=== PATIENT | male | born 1950 | race Caucasian/White ===

== ENCOUNTER 2017-05-13 09:03 | Emergency (ER) | payer MEDICARE, OTHER, SELFPAY ==
[2017-05-13 09:03] VITALS: BP 148/103; PULSE 64; RESP 19; TEMP 36.4; O2SAT 97; BMI 32.2
--- NOTE | 2017-05-13 09:19 | CT_ITS ---
STUDY: CTA OF THE BRAIN REASON FOR EXAM: Male, 67 years old. RT EAR TINNITUS, NAUSEA, PT C/O DIZZINESS WHEN HE WOKE UP THIS AM AROUND 0600. WENT BACK TO BED WOKE UP AT 0800 STILL DIZZY AND NAUSEATED. 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 Data acquisition was obtained from the skull base through the vertex following intravenous administration of ml of . MIP images were reconstructed from the axial data set. Post-processing of the angiographic images was performed, with multiplanar reformation and 3D reconstruction. Individualized dose optimization techniques were used for this CT. COMPARISON: None. FINDINGS: Normal bilateral petrous carotid arteries. Normal right cavernous carotid artery with a normal supraclinoid bifurcation. Normal left cavernous carotid artery with a normal supraclinoid bifurcation. Normal right A1 segments of the anterior cerebral artery. Normal left A1 segments of the anterior cerebral artery. Normal intact anterior communicating artery (ACOM). Normal bilateral A2 segments of the anterior cerebral arteries. Normal right M1 and M2 segments of the middle cerebral arteries, with a normal M1 bifurcation. Normal left M1 and M2 segments of the middle cerebral arteries, with a normal M1 bifurcation. There is non-visualization of the right posterior communicating artery (PCOM). There is non-visualization of the left posterior communicating artery (PCOM). Normal bilateral vertebral arteries. Normal basilar artery with a normal basilar bifurcation. The visualized bilateral superior cerebellar (SCA) arteries are normal. Normal bilateral P1, P2 and visualized P3 segments of the posterior cerebral arteries. There is no demonstrated aneurysm of the [place]. There is no demonstrated abnormality of the visualized brain. IMPRESSION: Normal [place] without a demonstrated aneurysm or hemodynamically significant stenosis. Electronically Signed: Mellissa Burt MD at 11:01 EDT Tel , Service support , STUDY: CTA NECK WITH CONTRAST REASON FOR EXAM: Male, 67 years old. RT EAR TINNITUS, NAUSEA, PT C/O DIZZINESS WHEN HE WOKE UP THIS AM AROUND 0600. WENT BACK TO BED WOKE UP AT 0800 STILL DIZZY AND NAUSEATED. 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 MIP images were reconstructed from the axial data set. Post-processing of the angiographic images was performed, with multiplanar reformation and 3D reconstruction. Individualized dose optimization techniques were used for this CT. COMPARISON: None. FINDINGS: AORTIC ARCH: There is atherosclerotic calcific plaque formation of the aortic arch and great vessels arising from the aortic arch, without a hemodynamically significant stenosis. There is a bovine origin of the great vessels with a common origin of the brachiocephalic and left common carotid artery. Normal origin of the left subclavian artery. RIGHT CAROTID ARTERIES: Normal right common carotid artery (CCA). There is mild atherosclerotic plaque formation with minimal narrowing of the right carotid bulb. Normal origin of the right internal carotid (ICA) artery without a hemodynamically significant stenosis. There is atherosclerotic tortuous elongation of the cervical portion of the right internal carotid artery. Normal origin of the right external carotid artery (ECA). LEFT CAROTID ARTERIES: Normal left common carotid artery (CCA). There is mild atherosclerotic plaque formation with minimal narrowing of the left carotid bulb. Normal origin of the left internal carotid (ICA) artery without a hemodynamically significant stenosis. There is atherosclerotic tortuous elongation of the cervical portion of the left internal carotid artery. Normal origin of the left external carotid artery (ECA). VERTEBRAL ARTERIES: Normal bilateral vertebral arteries. CT/CTA Head W/WO Contrast IMPRESSION: Normal bilateral cervical carotid and vertebral arteries. The degree of stenosis calculation is in accordance with NASCET criteria. Electronically Signed: Mellissa Burt MD at 11:02 EDT Tel , Service support ,
--- NOTE | 2017-05-13 09:19 | EKG12_ITS ---
Test Reason : DIZZINESS Blood Pressure : / mmHG Vent. Rate : 056 BPM Atrial Rate : 056 BPM P-R Int : 154 ms QRS Dur : 088 ms QT Int : 422 ms P-R-T Axes : 010 039 013 degrees QTc Int : 407 ms Sinus bradycardia Otherwise normal ECG Confirmed by ABHI HUYNH, KEE ([id number]), editorial intern MILEY SMITH ([id number]) on 05/17/2017 1:04:08 PM Referred By: LIAM Confirmed By:KEE MOE MD
--- NOTE | 2017-05-13 09:19 | CT_ITS ---
STUDY: CTA OF THE BRAIN REASON FOR EXAM: Male, 67 years old. RT EAR TINNITUS, NAUSEA, PT C/O DIZZINESS WHEN HE WOKE UP THIS AM AROUND 0600. WENT BACK TO BED WOKE UP AT 0800 STILL DIZZY AND NAUSEATED. 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 Data acquisition was obtained from the skull base through the vertex following intravenous administration of ml of . MIP images were reconstructed from the axial data set. Post-processing of the angiographic images was performed, with multiplanar reformation and 3D reconstruction. Individualized dose optimization techniques were used for this CT. COMPARISON: None. FINDINGS: Normal bilateral petrous carotid arteries. Normal right cavernous carotid artery with a normal supraclinoid bifurcation. Normal left cavernous carotid artery with a normal supraclinoid bifurcation. Normal right A1 segments of the anterior cerebral artery. Normal left A1 segments of the anterior cerebral artery. Normal intact anterior communicating artery (ACOM). Normal bilateral A2 segments of the anterior cerebral arteries. Normal right M1 and M2 segments of the middle cerebral arteries, with a normal M1 bifurcation. Normal left M1 and M2 segments of the middle cerebral arteries, with a normal M1 bifurcation. There is non-visualization of the right posterior communicating artery (PCOM). There is non-visualization of the left posterior communicating artery (PCOM). Normal bilateral vertebral arteries. Normal basilar artery with a normal basilar bifurcation. The visualized bilateral superior cerebellar (SCA) arteries are normal. Normal bilateral P1, P2 and visualized P3 segments of the posterior cerebral arteries. There is no demonstrated aneurysm of the [place]. There is no demonstrated abnormality of the visualized brain. IMPRESSION: Normal [place] without a demonstrated aneurysm or hemodynamically significant stenosis. Electronically Signed: Mellissa Burt MD at 11:01 EDT Tel , Service support , STUDY: CTA NECK WITH CONTRAST REASON FOR EXAM: Male, 67 years old. RT EAR TINNITUS, NAUSEA, PT C/O DIZZINESS WHEN HE WOKE UP THIS AM AROUND 0600. WENT BACK TO BED WOKE UP AT 0800 STILL DIZZY AND NAUSEATED. 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 MIP images were reconstructed from the axial data set. Post-processing of the angiographic images was performed, with multiplanar reformation and 3D reconstruction. Individualized dose optimization techniques were used for this CT. COMPARISON: None. FINDINGS: AORTIC ARCH: There is atherosclerotic calcific plaque formation of the aortic arch and great vessels arising from the aortic arch, without a hemodynamically significant stenosis. There is a bovine origin of the great vessels with a common origin of the brachiocephalic and left common carotid artery. Normal origin of the left subclavian artery. RIGHT CAROTID ARTERIES: Normal right common carotid artery (CCA). There is mild atherosclerotic plaque formation with minimal narrowing of the right carotid bulb. Normal origin of the right internal carotid (ICA) artery without a hemodynamically significant stenosis. There is atherosclerotic tortuous elongation of the cervical portion of the right internal carotid artery. Normal origin of the right external carotid artery (ECA). LEFT CAROTID ARTERIES: Normal left common carotid artery (CCA). There is mild atherosclerotic plaque formation with minimal narrowing of the left carotid bulb. Normal origin of the left internal carotid (ICA) artery without a hemodynamically significant stenosis. There is atherosclerotic tortuous elongation of the cervical portion of the left internal carotid artery. Normal origin of the left external carotid artery (ECA). VERTEBRAL ARTERIES: Normal bilateral vertebral arteries. CT/CTA Neck W/WO Contrast IMPRESSION: Normal bilateral cervical carotid and vertebral arteries. The degree of stenosis calculation is in accordance with NASCET criteria. Electronically Signed: Mellissa Burt MD at 11:02 EDT Tel , Service support ,
[2017-05-13 09:36] LABS: Absolute Lymphocyte Count 1.54 X10^3/ul (0.83-4.51); Absolute Neutrophil Count 2.9 X10^3/uL (2.0-7.7); Basophil# 0.03 X10^3/uL; Basophil% 0.6 % (0-1); Eosinophil# 0.19 X10^3/uL; Eosinophils% 3.6 % (0-5); Hematocrit 43.9 % (40-54); Hemoglobin 15.2 g/dl (13.0-16.5); Lymphocyte # 1.54 X10^3/ul (4.0); Lymphocyte % 29.6 % (19-41); Mean Corp Hgb Conc 34.6 g/gl (32-36); Mean Corpuscular Hgb 30.6 pg (27.0-32.0); Mean Corpuscular Volume 88.3 fL (80-94); Mean Platelet Vol. 9.2 fl (6.2-12.0); Monocyte# 0.57 X10^3/uL; Monocyte% 10.9 % (0-10); Neutrophil # 2.86 X10^3/uL (2.7-7.7); Neutrophil % 54.9 % (47-70); POSITIVE COUNT NO; POSITIVE DIFFERENTIAL NO; POSITIVE MORPHOLOGY NO; Platelet Count 221 K/mm3 (150-450); RBC Distribution Width CV 12.7 % (11.6-14.6); RBC Distribution Width SD 40.7 fl (35.1-43.9); Red Blood Count 4.97 M/mm3 (4.6-6.2); White Blood Count 5.2 K/mm3 (4.4-11.0)
[2017-05-13 09:42] VITALS: BP 139/98; PULSE 49; RESP 12; O2SAT 96
[2017-05-13 09:47] LABS: Anion Gap 8 (5-15); BUN 18 mg/dL (7-18); BUN/Creat Ratio 16.7 RATIO (10-20); Calcium,Total 8.6 mg/dL (8.5-10.1); Chloride 106 mmol/L (98-107); Creatinine, Serum 1.08 mg/dL (0.70-1.30); EST Glomerular Filtration Rate 72 mL/min (>60); Est Glom Filt Rate - Afr Amer 87 mL/min (>60); Estimated Creatinine Clearance 59.07 ml/min; Glucose 98 mg/dL (74-106); Potassium 3.7 mmol/L (3.5-5.1); Sodium Level 140 mmol/L (136-145)
[2017-05-13 09:49] VITALS: BP 136/90; BP 148/96; BP 149/93; PULSE 57; PULSE 59; PULSE 60
[2017-05-13] MEDS: 0.9% Normal Saline 1,000 ML 150 ML IV (09:54)
[2017-05-13] MEDS: Ondansetron 4 MG/2 ML Vial IV (09:54)
[2017-05-13] MEDS: Meclizine 12.5 MG Tablet 25 MG PO (10:26)
[2017-05-13 11:21] VITALS: BP 132/90; PULSE 48; RESP 14; O2SAT 97
--- NOTE | 2017-05-13 11:55 | ED.DCSUM_ITS ---
- ER Visit Summary Date of Service: 05/13/17 Chief Complaint: [Dizziness] History of Present Illness: The patient is a 67 M [presents to the emergency department dizziness that started around 6 AM. Patient states he got up to use the restroom and noticed that he was very off balance. Patient was able to get to the bathroom and then get back to bed. Patient noticed once again that when he woke up he was continuing to feel dizzy and off-balance. Patient was nauseated but did not vomit. Patient also gives history of a pulse like sensation in his right ear last night before going to bed. Patient denies any falls or head injuries. Patient is never had symptoms like this before. His took his blood pressure noted that it was in the 160s over 90s and was concerned about the elevated blood pressure. 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 Patient surgery was in his 20s.] Physical Examination: [HEENT-PERRLA, EOMI. Cranial nerves II through XII grossly intact. TMs clear. Mucous membranes moist. No adenopathy. Cardiovascular-regular rate and rhythm without murmur or ectopy Lungs-clear to auscultation, chest wall stable without crepitus or subcu emphysema Abdomen-normoactive bowel sounds, soft, nontender, no rebound or rigidity, no peritoneal signs. Neuro jecu-nhlylh-icou and heel fletcher testing within normal limits, negative Romberg, negative pronator drift, fundi benign. Patient was Hallpike and no nystagmus was elicited. Extremities-intact ?4, normal range of motion, normal pulses, atraumatic] Test Results: [EKG obtained arrival shows sinus rhythm with rate of 56 bpm with no acute I segment changes. CBC with differential was normal. Chemistries were normal. Troponin was less than 0.02. Orthostatics were negative. CTA of the brain and neck obtained were normal.] Emergency Department Course and Treatment: [Patient was medicated with Antivert and Zofran. Patient's dizziness is improved and he was able to ambulate to the bathroom and back without difficulty. Patient's nausea is improved.] Treatment Plan: [This point I suspect likely a peripheral vertigo as the etiology of his symptoms. My suspicion is low for posterior circulation stroke. We discussed possible admission for further workup and evaluation such as possibly MRI to evaluate further. Patient would prefer to follow-up as an outpatient with his ENT physician given that his symptoms have improved with treatment here.] Disposition: [Discharged to home in stable condition] Impression: [Dizziness-suspect peripheral vertigo] This note was generated with Sensitive Object dictation software. It may contain incorrect words, spelling, and punctuation that were not noted in review of the chart prior to signing ED Disposition - Plan for ED Patient: Chief Complaint: Dizziness Referrals: Tylor Luna III, MD [Primary Care Provider] -
--- NOTE | 2017-05-13 11:55 | ED.DEP ---
ED Disposition - Plan for ED Patient: Chief Complaint: Dizziness Instructions: ED BPV Vertigo, ED Dizziness [facility]O Prescriptions: Ondansetron [Zofran Odt] 4 mg PO Q8H PRN PRN #10 tab PRN Reason: Nausea Meclizine HCl [Antivert] 25 mg PO 4X/DAY PRN PRN #20 tab PRN Reason: Dizziness Referrals: Tylor Luna III, MD [Primary Care Provider] - Jose Foss MD [STAFF PHYSICIAN] - 3-5 Days
[2017-05-13 12:16] VITALS: BP 123/83; PULSE 59; RESP 16; O2SAT 100
== END 2017-05-13 12:18 | disposition home or self-care (01) ==
PROVIDERS: Emergency Provider Emergency Medicine; Family Provider Family Medicine; PCP Family Medicine
DX: R42 Dizziness and giddiness (principal); Z85.038 Personal history of other malignant neoplasm of large intestine
CPT/HCPCS: 70496; 70498; 80048; 84484; 85025; 93005; 96361; 96374; 99285; J7030; Q9967; A4216; J2405

== ENCOUNTER 2020-08-28 11:23 | Observation (INO) | payer MEDICARE, OTHER, SELFPAY ==
[2020-08-28 11:25] VITALS: BP 177/93; PULSE 58; RESP 10; TEMP 36.4; O2SAT 97; BMI 27.8
[2020-08-28 11:31] VITALS: BP 150/95; PULSE 56
--- NOTE | 2020-08-28 11:56 | EDS_ITS ---
HPI History of Present Illness Chief Complaint: Dizziness Informant: patient and spouse/S.O. Narrative Narrative: Patient is a 70-year-old male with history of vertigo presenting with dizziness and concerns for dehydration. Patient states he had a stomach flu earlier this week and had vomiting and increased colostomy output. Starting 2 nights ago he started to have vertigo attack which he describes as dizziness and nausea. It is worse when he moves his head. He is not been able to eat or drink because of his vertigo. He is concerned he is dehydrated. He is not taking anything for his vertigo. He states he follows with Dr. Champagne. He has had an operation for removal of the bones in his left inner ear and reconstruction of his tympanic membrane in the past. He denies any weakness, headache or ringing in his ears. No other complaints at this time. Patient has colostomy because of history of primary colon cancer. He states that he had a check up 2 weeks ago with normal imaging. [facility] Medical History (Updated 08/28/20 @ 21:[address] Drea Tidwell, ) Colon cancer Home Medications NK 08/28/20 [History Last Taken Unknown] Allergy/AdvReac Type Severity Reaction Status Date / Time latex Allergy Rash Verified 08/28/20 11:25 Family History (Updated 08/28/20 @ 16:32 by Mary Ramos NP, RENAL MEDICINE PHYSICIAN-C) Mother Cancer Father Substance abuse Surgical History Colostomy in place H/O eye surgery S/P ear surgery Social History (Updated 08/28/20 @ 16:34 by Mary Ramos NP, RENAL MEDICINE PHYSICIAN-C) household members: spouse Smoking Status: Never smoker alcohol intake: never substance use type: does not use ROS ROS ED Constitutional Constitutional ED: Denies chills or fever(s) Eyes Eyes: Denies blurry vision or change in vision ENT ENT ED: Denies ear pain, rhinorrhea or sore throat Cardiovascular Cardiovascular: Denies chest pain or palpitations Respiratory/Chest Respiratory/Chest: Denies cough or dyspnea Gastrointestinal Gastrointestinal: Reports diarrhea, nausea and vomiting; Denies abdominal pain, constipation or melena Genitourinary Genitourinary ED: Denies dysuria or hematuria Musculoskeletal Musculoskeletal: Denies arthralgias or myalgias Integumentary Denies rash Neurologic Neurologic: Reports weakness; Denies headache(s) Psychiatric Psychiatric: Denies anxiety or depression EXAM Physical Exam Const Vital Signs: 08/28/20 11:25 08/28/20 11:27 08/28/20 11:31 Temperature 97.5 F L Temperature Source Temporal Pulse Rate 58 L 56 L Respiratory Rate 10 L Respiratory Effort Normal Non-Labored Respiratory Pattern Normal Blood Pressure 177/93 H 150/95 H Blood Pressure Mean 121 113 Pulse Ox 97 Oxygen Delivery Method Room Air 08/28/20 15:01 08/28/20 16:13 Temperature 98.7 F Temperature Source Temporal Pulse Rate 65 70 Respiratory Rate 20 H 14 Respiratory Effort Respiratory Pattern Blood Pressure 145/83 H 148/85 H Blood Pressure Mean 103 106 Pulse Ox 95 95 Oxygen Delivery Method Room Air Positive well nourished and well developed General Appearance ED: well developed HEENT Reports TM's clear and moist mucous membranes Tympanic Membrane ED: Yes TM's clear Eyes PERRL and EOMs intact bilaterally Eyes Narrative: Not able to reproducible nystagmus on exam. Patient does not tolerate Isrrael Maneuver. Neck supple and no JVD Chest Wall inspection of chest normal Resp normal respiratory effort and clear to auscultation bilaterally Cardio regular rate, regular rhythm and no murmurs GI normal to inspection, nondistended, normoactive bowel sounds GI Narrative: ostomy present Extremity normal to inspection General Extremety ED: Negative for edema General Extremity: Negative for edema Neuro oriented x3, CN's II-XII intact bilaterally and no sensory deficits noted Neuro Narrative: Normal finger to nose, no truncal ataxia Sensorium / Orientation: alert Motor Exam: strength 5/5 throughout Psych mental status grossly normal Skin no rashes or lesions noted MDM MDM MDM Narrative Medical decision making narrative: Patient evaluated for generalized weakness and dizziness. He states that this feels like his prior vertigo. He is treated with IVF, Zofran and PO Meclazine. On re-evalaution he still states that he is very weak. He is ordered Valium orally but declines to take it because he is worried that he will be to sleepy and then be able to eat. He statesthat he doesnt feel safe going home. I did attempt to ambulate patient, but he states that he feels to dizzy to walk and can not get out of bed. I do not suspect a central vertigo as he has a normal neurologic exam and a history of vertigo. He will be admitted for IVF hydration and further observation. Lab Data Attestation: I reviewed the patient's lab results. Labs: Laboratory Results - last 24 hr 08/28/20 08/28/20 08/28/20 11:10 11:10 13:00 WBC 5.9 RBC 5.61 Hgb 16.6 H Hct 49.2 MCV 87.7 MCH 29.6 MCHC 33.7 RDW Std Deviation 39.2 RDW Coeff of Epi 12.0 Plt Count 237 MPV 9.1 Immature Gran % (Auto) 0.500 Neut % (Auto) 62.9 Lymph % (Auto) 23.4 Storey % (Auto) 11.0 H Eos % (Auto) 1.7 Baso % (Auto) 0.5 Absolute Neuts (auto) 3.7 Absolute Lymphs (auto) 1.38 Nucleated RBC % 0 Sodium 138 Potassium 3.7 Chloride 103 Carbon Dioxide 29.0 Anion Gap 6 BUN 12 Creatinine 1.08 Estim Creat Clear Calc 56.61 Est GFR (MDRD) Af Amer 87 Est GFR (MDRD) Non-Af 72 BUN/Creatinine Ratio 11.1 Glucose 102 Calcium 8.8 Magnesium 2.6 Total Bilirubin 1.20 H AST 18 ALT 23 Alkaline Phosphatase 62 Total Protein 8.0 Albumin 3.5 Globulin 4.5 H Albumin/Globulin Ratio 0.8 L Lipase 91 Urine Color Yellow Urine Clarity Clear Urine pH 7.0 Ur Specific Temple 1.010 Urine Protein Negative Urine Glucose (UA) Normal Urine Ketones 5 H Urine Occult Blood Negative Urine Nitrite Negative Urine Bilirubin Negative Urine Urobilinogen Normal Ur Leukocyte Esterase Negative Urine RBC 0 SEEN Urine WBC 0 SEEN Ur Squamous Epith Cells 0 SEEN Urine Bacteria 0 SEEN Urine Mucus 0 SEEN Discharge Plan Dx/Rx/DC Orders Clinical Impression: Vertigo Disposition Disposition: Acute Care Hospital [facility] Discharge Date/Time: 08/28/20 17:08
[2020-08-28 12:03] LABS: Absolute Lymphocyte Count 1.38 X10^3/uL (0.83-4.51); Absolute Neutrophil Count 3.7 X10^3/uL (2.0-7.7); Basophil# 0.03 X10^3/uL; Basophil% 0.5 % (0-1); Eosinophils% 1.7 % (0-5); Hematocrit 49.2 % (40-54); Hemoglobin 16.6 g/dL (13.0-16.5); Lymphocyte # 1.38 X10^3/ul (0.83-4.51); Lymphocyte % 23.4 % (19-41); Mean Corp Hgb Conc 33.7 g/dL (32-36); Mean Corpuscular Hgb 29.6 pg (27.0-32.0); Mean Corpuscular Volume 87.7 fL (80-94); Mean Platelet Vol. 9.1 fl (6.2-12.0); Monocyte# 0.65 X10^3/uL; NRBC Flagged by Analyzer 0 % (0-5); Neutrophil % 62.9 % (47-70); Platelet Count 237 K/mm3 (150-450); RBC Distribution Width SD 39.2 fl (35.1-43.9); Red Blood Count 5.61 M/mm3 (4.6-6.2); White Blood Count 5.9 K/mm3 (4.4-11.0)
[2020-08-28] MEDS: 0.9% Normal Saline 1,000 ML 1000 ML IV (12:03)
[2020-08-28] MEDS: Ondansetron 4 MG/2 ML Vial IV (12:03)
[2020-08-28] MEDS: Meclizine HCl 25 MG Tablet PO ×2 (12:03→21:25)
[2020-08-28 12:22] LABS: ALB/GLOB Ratio 0.8 RATIO (0.9-2.4); AST(SGOT) 18 U/L (15-37); Alanine Aminotransfer ALT/SGPT 23 U/L (16-61); Albumin, Serum 3.5 g/dL (3.2-5.0); Alkaline Phosphatase 62 U/L (45-117); Anion Gap 6 (5-15); BUN 12 mg/dL (7-18); BUN/Creat Ratio 11.1 RATIO (10-20); Calcium,Total 8.8 mg/dL (8.5-10.1); Chloride 103 mmol/L (98-107); Creatinine, Serum 1.08 mg/dL (0.70-1.30); EST Glomerular Filtration Rate 72 mL/min (>60); Est Glom Filt Rate - Afr Amer 87 mL/min (>60); Estimated Creatinine Clearance 56.61 ml/min; Globulin 4.5 g/dL (2.2-4.2); Glucose 102 mg/dL (74-106); Lipase 91 U/L (73-393); Magnesium 2.6 mg/dL (1.6-2.6); Potassium 3.7 mmol/L (3.5-5.1); Sodium Level 138 mmol/L (136-145)
[2020-08-28 13:05] LABS: Bacteria 0 SEEN /hpf (None Seen); Mucous, Urine 0 SEEN /hpf (<or=2+); Red Blood Cells-Urine 0 SEEN /hpf (0-5); Squamous Epithelial Cells - UA 0 SEEN /hpf (0-5); White Blood Cells 0 SEEN /hpf (0-5)
[2020-08-28 13:07] LABS: Color, Urine Yellow (Yellow); Glucose, Dipstick Normal (Normal); Ketone-Dipstick 5 mg/dl (Negative); Leukocyte Esterase-Dipstick Negative /ul (Negative); Nitrite-Dipstick Negative (Negative); Occult Blood-Urine Negative /ul (Negative); Protein-Dipstick Negative (Negative); Urine Bilirubin Dipstick Negative (Negative); Urine Clarity Clear (Clear); Urine Urobilinogen Normal (Normal)
[2020-08-28 15:01] VITALS: BP 145/83; PULSE 65; RESP 20; O2SAT 95
[2020-08-28] MEDS: 0.9% Normal Saline 1,000 ML 150 ML IV (15:30)
[2020-08-28 16:13] VITALS: BP 148/85; PULSE 70; RESP 14; TEMP 37.1; O2SAT 95
--- NOTE | 2020-08-28 16:23 | NURSING ---
[address] [place] INTRACTABLE DIZZINESS
--- NOTE | 2020-08-28 16:28 | HP.PCM.HOS_ITS ---
Documented by User: Mary Ramos NP, RAILROAD INSPECTOR-C 08/28/20 16:39 HPI - General General Date of Admission: 08/28/20 Chief Complaint: Vertigo HPI Narrative JAY AUSTIN, is a 70 M who presents to the emergency room due to due to vertigo, nausea, vomiting, diarrhea. Patient reports on Saturday he developed diarrhea with nausea and vomiting and felt generally unwell. His symptoms resolved after a few days and he subsequently developed vertigo symptoms which she has had in the past. He states he intermittently felt off balance and had significant dizziness with movement. He states yesterday he laid on the couch in the basement as any movement caused him dizziness. He reports feeling warm however states she has checked his temperature multiple times and he has not had a fever. Patient states he had left inner ear surgery in the 1970s. He states he has had intermittent vertigo since that time. He has a past medical history of colon cancer status post colostomy placement. Denies other medical history. [facility] Medical History Colon cancer Home Medications NK 08/28/20 [History Last Taken Unknown] Allergy/AdvReac Type Severity Reaction Status Date / Time latex Allergy Rash Verified 08/28/20 11:25 Family History (Updated 08/28/20 @ 16:32 by Mary Ramos NP, RAILROAD INSPECTOR-C) Mother Cancer Father Substance abuse Surgical History Colostomy in place H/O eye surgery S/P ear surgery Social History (Updated 08/28/20 @ 16:34 by Mary Ramos NP, RAILROAD INSPECTOR-C) household members: spouse Smoking Status: Never smoker alcohol intake: never substance use type: does not use ROS Constitutional Constitutional: Denies change in weight, chills, fatigue, fever(s) or weakness Cardiovascular Cardiovascular: Denies chest pain, edema, lightheadedness, palpitations or syncope Respiratory/Chest Respiratory/Chest: Denies cough, dyspnea, productive cough, shortness of breath at rest, shortness of breath with exertion or wheezing Gastrointestinal Gastrointestinal: Reports diarrhea, nausea and vomiting; Denies abdominal pain or constipation Genitourinary Genitourinary: Denies burning urination, difficulty urinating, dysuria, hematuria, urinary frequency, urinary incontinence or urinary urgency Musculoskeletal Musculoskeletal: Denies back pain, joint pain or muscle weakness Integumentary Integumentary: Denies erythema, lesions, rash or wounds Neurologic Neurologic: Reports dizziness and other Details: Vertigo ; Denies abnormal speech, confusion, focal weakness, numbness, paresthesias, seizure-like activity or syncope Psychiatric Psychiatric: Denies anxiety or depression Hematologic/Lymphatic Hematologic/Lymphatic: Denies anemia, easy bleeding or easy bruising Allergic/Immunologic Allergic/Immunologic: Denies hives or asthma Vital Signs Vital Signs Vital Signs: 08/28/20 11:25 08/28/20 11:27 08/28/20 11:31 Temperature 97.5 F L Temperature Source Temporal Pulse Rate 58 L 56 L Respiratory Rate 10 L Respiratory Effort Normal Non-Labored Respiratory Pattern Normal Blood Pressure 177/93 H 150/95 H Blood Pressure Mean 121 113 Pulse Ox 97 Oxygen Delivery Method Room Air 08/28/20 15:01 08/28/20 16:13 Temperature 98.7 F Temperature Source Temporal Pulse Rate 65 70 Respiratory Rate 20 H 14 Respiratory Effort Respiratory Pattern Blood Pressure 145/83 H 148/85 H Blood Pressure Mean 103 106 Pulse Ox 95 95 Oxygen Delivery Method Room Air Weight Weight: 172 lb 6.424 oz Body Mass Index (BMI) 27.8 Physical Exam Const alert, oriented x3 and no apparent distress Orientation / Consciousness: awake, oriented to person, oriented to place and oriented to time HEENT normocephalic and moist oral mucous membranes Eyes PERRL, EOMs intact bilaterally and conjunctivae normal Neck no lymphadenopathy Resp normal respiratory effort and clear to auscultation bilaterally Cardio regular rate, regular rhythm and no murmurs Peripheral Pulses: pulses 2+ throughout GI normal to inspection, nondistended, normoactive bowel sounds, non-tender and non-distended GI Narrative: Colostomy intact Extremity normal to inspection Skin no rashes or lesions noted Lesions: no lesions Rashes: no rashes Trauma: no lacerations or abrasions Neuro CN's II-XII intact bilaterally, no focal motor deficits, no sensory deficits noted and deep tendon reflexes 2+ bilaterally Psych mental status grossly normal and affect normal Results Lab / Micro Data Result Diagrams: 08/28/20 11:10 08/28/20 11:10 Labs: Laboratory Results - last 24 hr 08/28/20 11:10: WBC 5.9, RBC 5.61, Hgb 16.6 H, Hct 49.2, MCV 87.7, MCH 29.6, MCHC 33.7, RDW Std Deviation 39.2, RDW Coeff of Epi 12.0, Plt Count 237, MPV 9.1, Immature Gran % (Auto) 0.500, Neut % (Auto) 62.9, Lymph % (Auto) 23.4, [place] % (Auto) 11.0 H, Eos % (Auto) 1.7, Baso % (Auto) 0.5, Absolute Neuts (auto) 3.7, Absolute Lymphs (auto) 1.38, Nucleated RBC % 0 08/28/20 11:10: Sodium 138, Potassium 3.7, Chloride 103, Carbon Dioxide 29.0, Anion Gap 6, BUN 12, Creatinine 1.08, Estim Creat Clear Calc 56.61, Est GFR (MDRD) Af Amer 87, Est GFR (MDRD) Non-Af 72, BUN/Creatinine Ratio 11.1, Glucose 102, Calcium 8.8, Magnesium 2.6, Total Bilirubin 1.20 H, AST 18, ALT 23, Alkaline Phosphatase 62, Total Protein 8.0, Albumin 3.5, Globulin 4.5 H, Albumin/Globulin Ratio 0.8 L, Lipase 91 08/28/20 13:00: Urine Color Yellow, Urine Clarity Clear, Urine pH 7.0, Ur Specific [place] 1.010, Urine Protein Negative, Urine Glucose (UA) Normal, Urine Ketones 5 H, Urine Occult Blood Negative, Urine Nitrite Negative, Urine Bilirubin Negative, Urine Urobilinogen Normal, Ur Leukocyte Esterase Negative, Urine RBC 0 SEEN, Urine WBC 0 SEEN, Ur Squamous Epith Cells 0 SEEN, Urine Bacteria 0 SEEN, Urine Mucus 0 SEEN Assessment & Plan Assessment/Plan (1) Vertigo: PLAN: 1. Acute vertigo, history of recurrent vertigo following left ear surgery- Follows with Dr. Foss, ENT. Scheduled meclizine. As needed Valium. As needed antiemetics. PT for vestibular therapy. 2. Viral gastroenteritis-mostly resolved. Denies further diarrhea. Continues to have intermittent nausea associated with #1. As needed antiemetics. IV fluids. 3. History of colon cancer-recent 5-year remission. Status post colostomy. 4. Elevated blood pressure without history of hypertension-as needed hydralazine for systolic blood pressure greater than 160. Suspect elevated related to acute presentation. Will monitor. DVT prophylaxis- Not indicated, low risk This patient was seen by NADEEN GeigerC under the supervision of Dr. Curiel. Documented by User: Dr. Avi Curiel, DO 08/28/20 17:52 HPI - General General Date of Admission: 08/28/20 [facility] Medical History Colon cancer Home Medications NK 08/28/20 [History Last Taken Unknown] Allergy/AdvReac Type Severity Reaction Status Date / Time latex Allergy Rash Verified 08/28/20 11:25 Family History (Updated 08/28/20 @ 16:32 by Mary Ramos NP, RAILROAD INSPECTOR-C) Mother Cancer Father Substance abuse Surgical History Colostomy in place H/O eye surgery S/P ear surgery Social History (Updated 08/28/20 @ 16:34 by Mary Ramos NP, RAILROAD INSPECTOR-C) household members: spouse Smoking Status: Never smoker alcohol intake: never substance use type: does not use Results Lab / Micro Data Result Diagrams: 08/28/20 11:10 08/28/20 11:10 Charges/Coding Addendum Addendum: Patient was seen and examined today independently of Mary Ramos, he came to the emergency room at [facility] with complaints of a dizzy sensation along with nausea, midweek patient stated he had an episode of diarrhea but that has resolved. Patient was given medication in the ER for his dizziness but despite this, patient was not able to ambulate well in the emergency room. On examination he appeared in good health and spirits. Vital signs as documented. Skin warm and dry and without overt rashes. Neck without JVD, neck was supple, trachea midline, thyroid was normal. Lungs clear bilaterally, normal air movement was noted. Heart exam notable for regular rhythm, normal sounds and absence of murmurs, rubs or gallops. Abdomen unremarkable and without evidence of organomegaly, masses, or abdominal aortic enlargement. Patient has a colostomy. Bowel sounds are present, abdomen is not distended. Extremities nonedematous, no cyanosis was noted, no clubbing was noted. Neuro: Cranial nerves II through XII are grossly intact, no focal motor deficits were noted, sensation to light touch and pinprick intact, motor exam 5/5 throughout. Psych: Patient is alert and oriented x3, he does not appear anxious or depressed, he does not appear agitated. Patient will be placed in observation status on MedSurg 3, he will be given IV fluids, patient prefers not to take Valium he is afraid that it may cause drowsiness. Patient thinks that if he has some nutrition he will improve. I perez ve reviewed Mary Ramos's history and physical including her medical assessment and plan of care and endorse it. Visit Charges OBSV E&M: 54742 Initial observation care L3
[2020-08-28 17:20] VITALS: BP 156/83; PULSE 54; RESP 16; TEMP 36.6; O2SAT 98
[2020-08-28 17:21] VITALS: BMI 27.1
[2020-08-28] MEDS: 0.9% Normal Saline 1,000 ML 125 ML IV (21:25)
[2020-08-28 21:28] VITALS: BP 149/81; PULSE 57; RESP 18; TEMP 36.9; O2SAT 98
[2020-08-29 03:32] VITALS: BP 148/89; PULSE 57; RESP 16; TEMP 36.6; O2SAT 94
[2020-08-29] MEDS: 0.9% Normal Saline 1,000 ML 125 ML IV (05:32)
[2020-08-29] MEDS: Meclizine HCl 25 MG Tablet PO (05:32)
[2020-08-29 08:16] VITALS: BP 160/98; PULSE 52; RESP 16; TEMP 36.6; O2SAT 97
--- NOTE | 2020-08-29 11:09 | PCM.DC ---
Discharge Instructions Diet Discharge Diet: No restrictions Activity Discharge Activity: Return to Normal Activity Dressing / Incision Call your doctor if you observe: Shortness of breath, Dizziness and Chest pain Follow Up Care Test Results: Test results from this visit will be discussed in further detail at your follow-up appointment, if applicable. Discharge Plan Admission Admit Date/Time: 08/28/20 16:30 Primary Reason for Your Visit: Vertigo Attending Provider: Avi Curiel Primary Care Provider: Tylor Luna III Discharge Orders/Prescriptions Prescriptions: New meclizine 25 mg Tablet 25 mg PO TID PRN (Reason: vertigo) Qty: 20 RF: 0 ondansetron HCl [Zofran] 4 mg tablet 4 mg PO Q8H PRN (Reason: nausea and vomiting) Qty: 14 RF: 0 Referrals / Follow Up: Tylor Luna III, MD [Primary Care Provider] - In 1 Week Disposition Disposition (needs filled in before D/C Order can be placed): Home, Self Care
--- NOTE | 2020-08-29 11:16 | PCM.DC.SUM ---
Documented by User: Mary Ramos NP, MARKETING COMMUNITY LIAISON-C 08/29/20 11:22 Providers Date of Admission: 08/28/20 Date of Discharge: 08/29/20 Primary Care Physician: Dr. Tylor Luna III, MD Reason For Visit: VERTIGO Diagnosis Discharge Diagnosis (1) Vertigo: Status: Acute Code(s): R42 - Dizziness and giddiness Medications at Discharge Home Medications meclizine 25 mg PO TID PRN #20 tab 08/29/20 ondansetron HCl [Zofran] 4 mg PO Q8H PRN #14 tab 08/29/20 Hospital Course Operations None Procedures None Summary of Care Provided Minutes Spent on Discharge: 35 Hospital Course: Patient is a 70-year-old male admitted 08/28/2020 due to vertigo with nausea and vomiting. 1. Acute vertigo, history of recurrent vertigo following left ear surgery- Follows with Dr. Foss, ENT. PT for vestibular therapy. As needed meclizine at discharge and as needed antiemetics. Recommend follow-up with primary ENT and PCP in 1 week. 2. Viral gastroenteritis-resolved. Denies further diarrhea. Tolerating diet. Discharged with as needed antiemetics. 3. History of colon cancer-recent 5-year remission. Status post colostomy. 4. Elevated blood pressure without history of hypertension-improved, continue blood pressure monitoring at home with further follow-up with PCP. Patient was not initiated on oral antihypertensive due to improved blood pressure however blood pressure did fluctuate during admission, likely secondary to acute presentation. Physical Exam Const alert, oriented x3 and no apparent distress Orientation / Consciousness: awake, oriented to person, oriented to place and oriented to time HEENT normocephalic and moist oral mucous membranes Eyes PERRL, EOMs intact bilaterally and conjunctivae normal Neck no lymphadenopathy Resp normal respiratory effort and clear to auscultation bilaterally Cardio regular rate, regular rhythm and no murmurs Peripheral Pulses: pulses 2+ throughout GI normal to inspection, nondistended, normoactive bowel sounds, non-tender and non-distended GI Narrative: Colostomy intact Extremity normal to inspection Skin no rashes or lesions noted Lesions: no lesions Rashes: no rashes Trauma: no lacerations or abrasions Neuro CN's II-XII intact bilaterally, no focal motor deficits, no sensory deficits noted and deep tendon reflexes 2+ bilaterally Psych mental status grossly normal and affect normal Patient seen and examined prior to discharge. Physical assessment as noted above. Patient is stable for discharge with follow up recommendations as noted above. This patient was seen by JEY Geiger under the supervision of Dr. Curiel. Weight / BMI Weight Weight: 168 lb 1.6 oz Body Mass Index (BMI) 27.1 ABG / Lab / Microbiology Data Result Diagrams: 08/28/20 11:10 08/28/20 11:10 Laboratory: Laboratory Results - last 24 hr 08/28/20 11:10: WBC 5.9, RBC 5.61, Hgb 16.6 H, Hct 49.2, MCV 87.7, MCH 29.6, MCHC 33.7, RDW Std Deviation 39.2, RDW Coeff of Epi 12.0, Plt Count 237, MPV 9.1, Immature Gran % (Auto) 0.500, Neut % (Auto) 62.9, Lymph % (Auto) 23.4, [place] % (Auto) 11.0 H, Eos % (Auto) 1.7, Baso % (Auto) 0.5, Absolute Neuts (auto) 3.7, Absolute Lymphs (auto) 1.38, Nucleated RBC % 0 08/28/20 11:10: Sodium 138, Potassium 3.7, Chloride 103, Carbon Dioxide 29.0, Anion Gap 6, BUN 12, Creatinine 1.08, Estim Creat Clear Calc 56.61, Est GFR (MDRD) Af Amer 87, Est GFR (MDRD) Non-Af 72, BUN/Creatinine Ratio 11.1, Glucose 102, Calcium 8.8, Magnesium 2.6, Total Bilirubin 1.20 H, AST 18, ALT 23, Alkaline Phosphatase 62, Total Protein 8.0, Albumin 3.5, Globulin 4.5 H, Albumin/Globulin Ratio 0.8 L, Lipase 91 08/28/20 13:00: Urine Color Yellow, Urine Clarity Clear, Urine pH 7.0, Ur Specific [place] 1.010, Urine Protein Negative, Urine Glucose (UA) Normal, Urine Ketones 5 H, Urine Occult Blood Negative, Urine Nitrite Negative, Urine Bilirubin Negative, Urine Urobilinogen Normal, Ur Leukocyte Esterase Negative, Urine RBC 0 SEEN, Urine WBC 0 SEEN, Ur Squamous Epith Cells 0 SEEN, Urine Bacteria 0 SEEN, Urine Mucus 0 SEEN D/C Instructions Discharge Diet: No restrictions Call your doctor if you observe: Shortness of breath, Dizziness and Chest pain Meaningful Use Info Meaningful Use Diagnoses (Choose all that apply): None applicable Discharge Plan Admission Admit Date/Time: 08/28/20 16:30 Primary Reason for Your Visit: Vertigo Attending Provider: Avi Curiel Primary Care Provider: Tylor Luna III Discharge Orders/Prescriptions Prescriptions: New meclizine 25 mg Tablet 25 mg PO TID PRN (Reason: vertigo) Qty: 20 RF: 0 ondansetron HCl [Zofran] 4 mg tablet 4 mg PO Q8H PRN (Reason: nausea and vomiting) Qty: 14 RF: 0 Referrals / Follow Up: Tylor Luna III, MD [Primary Care Provider] - In 1 Week Disposition Disposition (needs filled in before D/C Order can be placed): Home, Self Care Documented by User: Dr. Avi Curiel DO 08/29/20 16:41 Providers Date of Admission: 08/28/20 Reason For Visit: VERTIGO Medications at Discharge Home Medications meclizine 25 mg PO TID PRN #20 tab 08/29/20 ondansetron HCl [Zofran] 4 mg PO Q8H PRN #14 tab 08/29/20 ABG / Lab / Microbiology Data Result Diagrams: 08/28/20 11:10 08/28/20 11:10 Discharge Plan Admission Admit Date/Time: 08/28/20 16:30 Primary Reason for Your Visit: Vertigo Attending Provider: Avi Curiel Primary Care Provider: Tylor Luna III Discharge Orders/Prescriptions Prescriptions: New meclizine 25 mg Tablet 25 mg PO TID PRN (Reason: vertigo) Qty: 20 RF: 0 ondansetron HCl [Zofran] 4 mg tablet 4 mg PO Q8H PRN (Reason: nausea and vomiting) Qty: 14 RF: 0 Referrals / Follow Up: Tylor Luna III, MD [Primary Care Provider] - In 1 Week Disposition Disposition (needs filled in before D/C Order can be placed): Home, Self Care Charges/Coding Addendum Addendum: Patient was seen and examined today independently of Mary Ramos, he did not complain of any dizziness or nausea at the time my examination this morning. On examination he appeared in good health and spirits. Vital signs as documented. Skin warm and dry and without overt rashes. Neck without JVD, neck was supple, trachea midline, thyroid was normal. Lungs clear bilaterally, normal air movement was noted. Heart exam notable for regular rhythm, normal sounds and absence of murmurs, rubs or gallops. Abdomen unremarkable and without evidence of organomegaly, masses, or abdominal aortic enlargement. Bowel sounds are present, abdomen is not distended. Extremities nonedematous, no cyanosis was noted, no clubbing was noted. Neuro: Cranial nerves II through XII are grossly intact, no focal motor deficits were noted, sensation to light touch and pinprick intact, motor exam 5/5 throughout. Psych: Patient is alert and oriented x3, he does not appear anxious or depressed, he does not appear agitated. Patient appears stable for discharge on 08/29/2020, I have reviewed Mary Ramos's discharge summary including her medical assessment and plan of care and endorse it. Visit Charges OBSV E&M: 78365 Observation care discharge
[2020-08-29 13:16] VITALS: BP 143/84
== END 2020-08-29 13:22 | disposition home or self-care (01) ==
LOC: ED 12:11 → MS3 16:48
PROVIDERS: Admitting Provider Internal Medicine; Emergency Provider Emergency Medicine; PCP Family Medicine; Visit Provider Internal Medicine
DX: R42 Dizziness and giddiness (principal); A08.4 Viral intestinal infection, unspecified; R03.0 Elevated blood-pressure reading, without diagnosis of hypertension; Z93.3 Colostomy status; C18.9 Malignant neoplasm of colon, unspecified; Z85.038 Personal history of other malignant neoplasm of large intestine
CPT/HCPCS: 80053; 81001; 83690; 83735; 85025; 96361; 96374; 97161; 99218; 99285; J7030; A4216; G0378; J2405

== ENCOUNTER 2021-04-20 15:11 | Outpatient (CLI) | payer MEDICARE, OTHER, SELFPAY ==
--- NOTE | 2021-04-19 16:30 | FORE_PTH ---
PATIENT: JAY AUSTIN LOC: [facility] U#:[id number] AGE/SX: 71/M ROOM: RE04/20/[address]: Dr. 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 See comment. SJ:licha 05/05/2021 COMMENT The specimen is sent to [facility] for expert opinion, reviewed by Dr. Russ and the above diagnosis is rendered. The complete report is viewable in the patient's EMR. Note: The findings are compatible with secondary reactive changes to the known clinical history of a foreign body at this site. There is focal keratinocytic atypia which is interpreted to be reactive. No evidence of polarizable foreign material is identified. PAS and GMS stains are negative for fungal elements. Clinical correlation/follow-up is recommended. If the lesion(s) persist or progress, an additional biopsy is recommended. Multiple level sections have been examined. Case has been reviewed in consultation with Dr. Magana who concurs with the above diagnosis. IDC:AM MICROSCOPIC DESCRIPTION Slides are reviewed. GROSS DESCRIPTION Received in fixative is one container labeled with the patient's name and designated foreign body right hand. The specimen consists of two pieces of skin and soft tissue measuring in aggregate 0.7 x 0.7 x 0.2 cm. The entire specimen is submitted in one cassette. / SAMMIE:licha 04/21/2021 TC:5 CPT: 56068
== END 2021-04-20 23:59 | disposition home or self-care (01) ==
LOC: LABSPEC 15:14
PROVIDERS: Visit Provider Student in an Organized Health Care Education/Training Program
DX: S60.551A Superficial foreign body of right hand, initial encounter (principal)
CPT/HCPCS: 88300; 88305

== ENCOUNTER 2022-09-01 17:04 | Emergency (ER) | payer MEDICARE, OTHER, SELFPAY ==
[2022-09-01 17:07] VITALS: BP 157/86; PULSE 51; RESP 18; TEMP 36.6; O2SAT 96
--- NOTE | 2022-09-01 17:21 | EDS_ITS ---
HPI History of Present Illness Chief Complaint: Lower Extremity Injury Informant: patient Narrative Narrative: Patient stepped down off of a ladder, he turned to the right and suddenly felt sudden pain and a pop sensation in the area of his left hip. Hurts to bear weight, better to rest, but no problem moving the left lower extremity when he is not bearing weight. He denies any groin pain or lower extremity pain. No abdominal pain. No other injuries. [facility] Colon cancer Home Medications meclizine 25 mg tablet 25 mg PO TID PRN vertigo #20 tabs 08/29/20 [Rx Last Taken Unknown] ondansetron HCl 4 mg tablet (Zofran) 4 mg PO Q8H PRN nausea and vomiting #14 tabs 08/29/20 [Rx Last Taken Unknown] Allergy/AdvReac Type Severity Reaction Status Date / Time latex Allergy Rash Verified 09/01/22 17:06 Family History Mother Cancer Father Substance abuse Surgical History Colostomy in place H/O eye surgery S/P ear surgery Social History household members: spouse Smoking Status: Never smoker alcohol intake: never substance use type: does not use ROS ROS ED Constitutional Constitutional ED: Denies chills or fever(s) Musculoskeletal Musculoskeletal: Reports other Details: left lateral pelvis/hip pain ; Denies neck pain Integumentary Denies Abrasions, rash or wounds Neurologic Neurologic: Denies paresthesias or weakness EXAM Physical Exam Const Vital Signs: 09/01/22 17:07 Temperature 97.8 F Temperature Source Temporal Pulse Rate 51 L Respiratory Rate 18 Blood Pressure 157/86 H Blood Pressure Mean 109 Pulse Ox 96 Oxygen Delivery Method Room Air Positive well nourished and well developed General Appearance ED: well developed and NAD Neck full ROM and supple Back/Spine normal ROM and normal to inspection Extremity normal to inspection and full ROM Extremity Narrative: Full range of motion left lower extremity including internal/external rotation of the hip without any pain. No tenderness at the greater trochanter. No tenderness at the ASIS, but coming around laterally to the lateral aspect of the left pelvic brim is where he is focally tender. Posterior to this in the sacrum, and in the buttock no tenderness. Above this in the abdomen nontender. No sign of obvious injury no swollen areas or hematomas. Neuro oriented x3, no focal motor deficits and no sensory deficits noted Sensorium / Orientation: alert Psych mental status grossly normal and thought process normal Skin no wounds Rashes: no rashes MDM MDM MDM Narrative Medical decision making narrative: 1 view pelvis x-ray was obtained and on my interpretation is negative for any acute fracture especially the left iliac wing, the area of interest. Radiology in agreement. Discussed this with the patient, even when he stands and bears weight, he does favor the leg, but he has pain at a pelvic brim. With internal/external rotation of the hip joint he has no groin pain, and when I axially load the acetabulum he does not have any groin pain to suggest a hip joint etiology. At this time I recommend ice, ibuprofen/NSAIDs as tolerated, but in relatively limited amounts, and follow-up with his doctor if he still having pain. I advised him that this is likely a minor tendon injury and could easily last a week or 2 before the pain goes away, or longer. I would not be able to rule out a tendon tear or rupture here in the ER, emergent MRI is not indicated but that would be the next best test if he has persistent issues. Offered prescription analgesics, crutches, he declines Radiography Diagnostic Testing: Clinical Impression(s) from Imaging Studies Pelvis X-Ray 09/01/22 17:30 IMPRESSION: Normal x-ray examination of the pelvis. Electronically Signed: Denis Mathis MD at 18:10 EDT , Discharge Plan Triage Chief Complaint: Lower Extremity Injury ED Provider: Robert Paniagua Dx/Rx/DC Orders Clinical Impression: Strain of muscle of pelvis Instructions: Treating?Strains and Sprains Prescriptions: No Action meclizine 25 mg Tablet 25 mg PO TID PRN (Reason: vertigo) Qty: 20 0RF ondansetron HCl [Zofran] 4 mg tablet 4 mg PO Q8H PRN (Reason: nausea and vomiting) Qty: 14 0RF Primary Care Provider: Willow Jiménez NP Referrals: Willow Jiménez NP, LEATHER CARTRIDGE BELT MAKER-C [Primary Care Provider] - 1-2 Weeks Disposition Disposition: Home, Self Care
--- NOTE | 2022-09-01 17:30 | RAD_ITS ---
STUDY: X-RAY - PELVIS REASON FOR EXAM: Male, 72 years old. pain L iliac wing TECHNIQUE: One view of the pelvis was obtained. COMPARISON: None. FINDINGS: There is a non-specific bowel gas pattern. Normal visualized soft tissue structures. Normal bilateral iliac wings, sacroiliac joints and visualized sacrum. Normal visualized bilateral superior and inferior pubic rami. Normal pubic symphysis. Normal ischial tuberosities. Normal visualized right femoral head. Normal right acetabulum. Normal right hip joint. Normal visualized left femoral head. Normal left acetabulum. Normal left hip joint. RAD/Pelvis 1 or 2 Views IMPRESSION: Normal x-ray examination of the pelvis. Electronically Signed: Denis Mathis MD at 18:10 EDT ,
== END 2022-09-01 18:58 | disposition home or self-care (01) ==
PROVIDERS: Emergency Provider Emergency Medicine; PCP Registered Nurse; Visit Provider Emergency Medicine
DX: S39.013A Strain of muscle, fascia and tendon of pelvis, initial encounter (principal); X58.XXXA Exposure to other specified factors, initial encounter
CPT/HCPCS: 72170; 99282

== ENCOUNTER 2023-04-05 10:43 | Inpatient (IN) | payer MEDICARE, OTHER, SELFPAY ==
[2023-04-05] VITALS (7 sets, daily range): BP systolic 135–180; BP diastolic 74–106; PULSE 50–60; RESP 14–18; TEMP 36.3–36.9; O2SAT 94–97; BMI 28.5; BMI 26.2
--- NOTE | 2023-04-05 10:56 | EKG12_ITS ---
Test Reason : Blood Pressure : / mmHG Vent. Rate : 056 BPM Atrial Rate : 056 BPM P-R Int : 140 ms QRS Dur : 082 ms QT Int : 430 ms P-R-T Axes : 027 017 005 degrees QTc Int : 414 ms Sinus bradycardia Otherwise normal ECG Confirmed by ABHI HUYNH, KEE ([id number]), food expeditor ARNEL PRESCOTT ([id number]) on 04/08/2023 9:36:27 AM Referred By: Confirmed By:KEE MOE MD
[2023-04-05 11:28] LABS: Absolute Lymphocyte Count 1.47 X10^3/uL (0.83-4.51); Absolute Neutrophil Count 3.2 X10^3/uL (2.0-7.7); Basophil# 0.03 X10^3/uL; Basophil% 0.6 % (0-1); Eosinophil# 0.15 X10^3/uL; Eosinophils% 2.8 % (0-5); Hematocrit 44.3 % (40-54); Hemoglobin 15.4 g/dL (13.0-16.5); Lymphocyte # 1.47 X10^3/ul (0.83-4.51); Lymphocyte % 27.1 % (19-41); Mean Corp Hgb Conc 34.8 g/dL (32-36); Mean Corpuscular Hgb 30.6 pg (27.0-32.0); Mean Corpuscular Volume 88.1 fL (80-94); Mean Platelet Vol. 9.2 fl (6.2-12.0); Monocyte# 0.51 X10^3/uL; Monocyte% 9.4 % (0-10); NRBC Flagged by Analyzer 0 % (0-5); Neutrophil # 3.24 X10^3/uL (2.7-7.7); Neutrophil % 59.7 % (47-70); Platelet Count 237 K/mm3 (150-450); RBC Distribution Width CV 12.4 % (11.6-14.6); RBC Distribution Width SD 40.5 fl (35.1-43.9); Red Blood Count 5.03 M/mm3 (4.6-6.2); White Blood Count 5.4 K/mm3 (4.4-11.0)
[2023-04-05 11:39] LABS: Anion Gap 3 (5-15); BUN 11 mg/dL (7-18); BUN/Creat Ratio 11.8 RATIO (10-20); Chloride 113 mmol/L (98-107); Creatinine, Serum 0.93 mg/dL (0.70-1.30); EST Glomerular Filtration Rate 84 mL/min (>60); Est Glom Filt Rate - Afr Amer 102 mL/min (>60); Estimated Creatinine Clearance 71.68 ml/min; Glucose 104 mg/dL (74-106); Potassium 3.9 mmol/L (3.5-5.1); Sodium Level 140 mmol/L (136-145)
--- NOTE | 2023-04-05 12:08 | ED.VIS.STROK ---
HPI History of Present Illness Chief Complaint: Neuro S/Sx Informant: patient and spouse/S.O. Onset/Context/Timing Onset: Days (2) Context: Gradual Onset Timing: Waxes and wanes Quality and Location: Positive for Slurred Speech and Difficulty with Ambulation Onset: 2 days ago Worsened by: Nothing Relieved by: Nothing Associated Symptoms Associated Symptoms: Negative for Headache, Nausea, Vomiting or Chest Pain Narrative Narrative: Patient presents with slurred speech and feeling off balance that began 2 days ago. Patient states he was doing some yard work and had to stop because he did not feel right. Patient states he was having difficulty walking because he was off balance. Patient states he has some dizziness as well. Patient has a history of vertigo since childhood. noted he had some slurred speech yesterday. states that is improving. Patient states that today he tried to do some writing and was having difficulty using his right hand to write numbers down. [facility] Medical History (Updated 04/05/23 @ 13:[address] 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 Home Medications meclizine 25 mg tablet 25 mg PO TID PRN vertigo #20 tabs 08/29/20 [Rx Last Taken Unknown] ondansetron HCl 4 mg tablet (Zofran) 4 mg PO Q8H PRN nausea and vomiting #14 tabs 08/29/20 [Rx Last Taken Unknown] losartan 25 mg tablet 25 mg PO DAILY 04/05/23 [History Last Taken Unknown] Allergy/AdvReac Type Severity Reaction Status Date / Time latex Allergy Rash Verified 09/01/22 17:06 Family History Mother Cancer Father Substance abuse Surgical History Colostomy in place H/O eye surgery S/P ear surgery Social History household members: spouse Smoking Status: Never smoker alcohol intake: never substance use type: does not use ROS ROS ED Constitutional Constitutional ED: Denies chills or fever(s) Eyes Eyes: Denies blurry vision or change in vision ENT ENT ED: Denies rhinorrhea or sore throat Cardiovascular Cardiovascular: Denies chest pain or palpitations Respiratory/Chest Respiratory/Chest: Denies cough or dyspnea Gastrointestinal Gastrointestinal: Denies nausea or vomiting Genitourinary Genitourinary ED: Denies dysuria or hematuria Musculoskeletal Musculoskeletal: Denies back pain or neck pain Integumentary Denies abscess or rash Neurologic Neurologic: Denies headache(s) or weakness Allergic/Immunologic Allergic/Immunologic ED: Denies mouth swelling or urticaria EXAM Physical Exam Const Vital Signs: 04/05/23 10:44 04/05/23 11:07 04/05/23 11:54 Temperature 98.4 F Temperature Source Temporal Pulse Rate 60 56 L Respiratory Rate 18 14 Blood Pressure 180/106 H 135/81 H Blood Pressure Mean 130 99 Pulse Ox 95 94 Oxygen Delivery Method Room Air Room Air Room Air 04/05/23 13:27 Temperature Temperature Source Pulse Rate Respiratory Rate Blood Pressure 138/88 H Blood Pressure Mean 104 Pulse Ox 94 Oxygen Delivery Method Positive well nourished and well developed General Appearance ED: well developed and NAD HEENT Reports moist mucous membranes Eyes PERRL and EOMs intact bilaterally Neck supple and no JVD Resp normal respiratory effort and clear to auscultation bilaterally Cardio Rate: regular rate Rhythm: regular rhythm GI soft to palpation, non-tender and non-distended Neuro oriented x3, CN's II-XII intact bilaterally and no sensory deficits noted Neuro Narrative: Patient does have some slurred speech on examination. Patient has no aphasia. Rick Coma Scale: document GCS findings Spontaneous Obeys Commands Oriented 15 Sensorium / Orientation: alert Motor Exam: strength 5/5 throughout Psych mental status grossly normal Skin no wounds NIHSS NIHSS Initial: 1a Level of Consciousness: 0 1b LOC Questions (Score 2 if aphasic/stupor): 0 1c LOC Commands (Only score 1st attempt): 0 2 Best Gaze (If aphasic, use reflexive mvmts.): 0 3 Visual: 0 4 Facial Palsy: 0 5 Motor Arm Right (UN = amputation/fusion): 0 5 Motor Arm Left: 0 6 Motor Leg Right: 0 6 Motor Leg Left: 0 7 Limb ataxia (Only + if out of proportion): 0 8 Sensory (Aphasia/stupor=0 or 1, coma=2): 0 9 Best Language: 1 10 Dysarthria (mute, coma=2, intubated=UN): 0 Total Score: 1 MDM MDM MDM Narrative Medical decision making narrative: Differential diagnosis includes stroke, electrolyte abnormality, intracranial bleeding, cardiac dysrhythmia, cardiac ischemia, and anxiety. EKG will be obtained to assess for cardiac dysrhythmia and cardiac ischemia. CT scan of the brain will be obtained to assess for intracranial bleeding and stroke. CTA of the head and neck will be obtained to assess for large vessel occlusion and atherosclerotic disease. CBC will be obtained to assess for leukocytosis and anemia. Basic metabolic profile will be obtained to assess for electrolyte abnormality and renal function. PT with INR and PTT will be obtained to assess for coagulopathy. High-sensitivity troponin will be obtained to assess for cardiac ischemia. Chest x-ray will be obtained to assess for pneumonia and widened mediastinum. Lab Data Attestation: I reviewed the patient's lab results. Lab results narrative: CBC was reviewed and was within normal limits. Basic metabolic profile was reviewed and was essentially within normal limits. PT was INR and PTT were reviewed and were within normal limits. Labs: Laboratory Results - last 24 hr 04/05/23 04/05/23 11:15 12:10 WBC 5.4 RBC 5.03 Hgb 15.4 Hct 44.3 MCV 88.1 MCH 30.6 MCHC 34.8 RDW Std Deviation 40.5 RDW Coeff of Epi 12.4 Plt Count 237 MPV 9.2 Immature Gran % (Auto) 0.400 Neut % (Auto) 59.7 Lymph % (Auto) 27.1 [place] % (Auto) 9.4 Eos % (Auto) 2.8 Baso % (Auto) 0.6 Absolute Neuts (auto) 3.2 Absolute Lymphs (auto) 1.47 Nucleated RBC % 0 PT Cancelled 12.7 INR Cancelled 1.0 APTT Cancelled 25.1 Sodium 140 Potassium 3.9 Chloride 113 H Carbon Dioxide 24.0 Anion Gap 3 L BUN 11 Creatinine 0.93 Estim Creat Clear Calc 71.68 Est GFR (MDRD) Af Amer 102 Est GFR (MDRD) Non-Af 84 BUN/Creatinine Ratio 11.8 Glucose 104 Calcium 9.0 Radiography Chest X-Ray - ED: 1 View, Read by ED Physician, Read by Radiologist and No Acute Disease Diagnostic Testing: Clinical Impression(s) from Imaging Studies Head/Neck CTA 04/05/23 12:26 IMPRESSION: Minimal plaque formation at the origin of the right internal carotid artery causing less than 50% stenosis. Electronically Signed: Nic Johns MD at 13:15 EST , Chest X-Ray 04/05/23 12:40 IMPRESSION: No acute abnormality is seen. Electronically Signed: Nic Johns MD at 12:48 EST , CT scan of the brain was obtained. There is no acute intracranial abnormality. This was interpreted by the radiologist and was also independently reviewed by myself. CTA of the head and neck was obtained. There is minimal plaque formation at the origin of the right internal carotid artery causing less than 50% stenosis. This was interpreted by the radiologist was also independently reviewed by myself. Portable 1 view chest x-ray was obtained. On my independent interpretation, lung olea are clear. There is normal cardiac silhouette. Bony thorax is normal. There is no acute process noted. Radiologist also interpreted the x-ray and agrees. EKG Initial EKG: Interpretation: Sinus Bradycardia (56) Comments: EKG was obtained. On my independent interpretation, it showed a sinus bradycardia with a rate of 56. CT interval, QRS interval, and QTc intervals were all normal. [place] was normal. There are no acute ST or T wave changes. Prior: Unchanged (05/13/2017) Management Discussion w/another healthcare provider: Hospitalist Treatment and Re-Evaluation Narrative: Patient has a NIH stroke scale of 1. Patient was advised of his findings. Patient was advised that this is likely from a stroke. Patient was advised he would need to be admitted to the hospital for further evaluation. Patient and spouse understand and are agreeable with the plan. Case was discussed with the hospitalist for admission. Discharge Plan Triage Chief Complaint: Neuro S/Sx ED Provider: Miguel Pierce Dx/Rx/DC Orders Clinical Impression: Slurred speech, Stroke Prescriptions: No Action meclizine 25 mg Tablet 25 mg PO TID PRN (Reason: vertigo) Qty: 20 0RF ondansetron HCl [Zofran] 4 mg tablet 4 mg PO Q8H PRN (Reason: nausea and vomiting) Qty: 14 0RF losartan 25 mg tablet 25 mg PO DAILY Primary Care Provider: Willow Jiménez NP Referrals: Willow Jiménez NP, V[employer]UNTEER SERVICES COORDINATOR-C [Primary Care Provider] - Disposition Disposition: Acute Care [facility]
--- NOTE | 2023-04-05 12:26 | CT_ITS ---
STUDY: CTA HEAD AND NECK WITH CONTRAST REASON FOR EXAM: Male, 73 years old. Neuro deficit, acute, stroke suspected RADIATION DOSAGE (If Supplied By Facility): CTDIvol = ( 31.04 ) mGy, DLP = ( 1634.18 ) mGycm TECHNIQUE: CT angiography was performed with a multi-detector CT scanner. Data acquisition was obtained from the skull base through the vertex following intravenous administration of IV 100mL Isovue-370. MIP images were reconstructed from the axial data set. Post-processing of the angiographic images was performed, with multiplanar reformation and 3D reconstruction. Individualized dose optimization techniques were used for this CT. COMPARISON: No relevant priors. FINDINGS: Normal bilateral petrous carotid arteries. Normal right cavernous carotid artery with a normal supraclinoid bifurcation. Normal left cavernous carotid artery with a normal supraclinoid bifurcation. Normal right A1 segments of the anterior cerebral artery. Normal left A1 segments of the anterior cerebral artery. Normal intact anterior communicating artery (ACOM). Normal bilateral A2 segments of the anterior cerebral arteries. Normal right M1 and M2 segments of the middle cerebral arteries, with a normal M1 bifurcation. Normal left M1 and M2 segments of the middle cerebral arteries, with a normal M1 bifurcation. Normal right posterior communicating artery (PCOM). Normal left posterior communicating artery (PCOM). Normal bilateral vertebral arteries. Normal basilar artery with a normal basilar bifurcation. The visualized bilateral superior cerebellar (SCA) arteries are normal. Normal bilateral P1, P2 and visualized P3 segments of the posterior cerebral arteries. There is no demonstrated aneurysm of the [place]. There is no demonstrated abnormality of the visualized brain. AORTIC ARCH: There is atherosclerotic calcific plaque formation of the aortic arch and great vessels arising from the aortic arch, without a hemodynamically significant stenosis. There is a bovine origin of the great vessels with a common origin of the brachiocephalic and left common carotid artery. Normal origin of the left subclavian artery. RIGHT CAROTID ARTERIES: Normal right common carotid artery (CCA). Normal right common carotid bulb. Mild plaque formation at the origin of the right internal carotid artery causing less than 50% narrowing. Normal visualized cervical portion of the right internal carotid artery. Normal origin of the right external carotid artery (ECA). LEFT CAROTID ARTERIES: Normal left common carotid artery (CCA). Normal left common carotid bulb. Normal origin of the left internal carotid (ICA) artery without a hemodynamically significant stenosis. Normal visualized cervical portion of the left internal carotid artery. Normal origin of the left external carotid artery (ECA). VERTEBRAL ARTERIES: Normal bilateral vertebral arteries. Unenhanced brain shows evidence of a mild degree of cerebral atrophy. CT/CTA Head AND Neck W/ Contrast IMPRESSION: Minimal plaque formation at the origin of the right internal carotid artery causing less than 50% stenosis. Electronically Signed: Nic Johns MD at 13:15 EST ,
--- NOTE | 2023-04-05 12:40 | RAD_ITS ---
STUDY: X-RAY CHEST REASON FOR EXAM: Male, 73 years old. Neuro deficit, acute, stroke suspected. TECHNIQUE: Single AP portable view of the chest. COMPARISON: None. FINDINGS: EKG electrodes are seen. The lungs are clear and expanded. There is no demonstrated pleural abnormality. Normal size heart. Normal mediastinum and daniella. Normal visualized pulmonary arteries. There is atherosclerotic tortuosity of the aortic arch and descending thoracic aorta. There are degenerative changes of the visualized thoracic spine. Normal visualized ribs, clavicles, and shoulders. There is no demonstrated abnormality of the visualized soft tissue structures of the upper abdomen. RAD/Chest 1 View IMPRESSION: No acute abnormality is seen. Electronically Signed: Nic Johns MD at 12:48 EST ,
[2023-04-05 12:44] LABS: Prothrombin Time (Protime)PT. 12.7 SECONDS (11.7-14.9)
[2023-04-05 12:45] LABS: Partial Thromboplast Time 25.1 Seconds (24.1-36.2)
--- NOTE | 2023-04-05 14:43 | HP.PCM.HOS_ITS ---
HPI - General General Date of Admission: 04/05/23 Date of Service: 04/05/23 Chief Complaint: off balance HPI Narrative JAY AUSTIN, is a 73-year-old male history of colon cancer with ostomy and hypertension presented to [facility] ED 04/05/2023 due to slurred speech and feeling off balance for 2 days. Was doing some yard work and had to stop because he was not feeling quite right and having difficulty walking as he is off balance and also had some dizziness. Does have history of vertigo since childhood but this was different and had some slurred speech as well that has been improving but today he has had difficulty using his right hand right numbers which is unusual for him. In ED workup unremarkable however given concerning signs and symptoms hospitalist contacted for stroke rule out. Patient evaluated bedside with , they report that a day ago patient was lightheaded and off balance and having some slurred speech was very tired and laid around for most of the day yesterday, also had increased ostomy output which was unusual for him. Went to bed and woke up this morning and called his doctor's office and they advised him to come to the ED. Feels his speech is better but that he is still unsteady and not back to normal. No other acute or focal complaints [facility] Medical History (Updated 04/05/23 @ 14:[address] 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 Home Medications losartan 25 mg tablet 25 mg PO DAILY 04/05/23 [History Last Taken Unknown] Allergy/AdvReac Type Severity Reaction Status Date / Time latex Allergy Rash Verified 09/01/22 17:06 Family History Mother Cancer Father Substance abuse Surgical History Colostomy in place H/O eye surgery S/P ear surgery Social History household members: spouse Smoking Status: Never smoker alcohol intake: never substance use type: does not use ROS ROS Narrative General: Denies fever/chills HENT: Denies headache, denies stuffy nose, denies sore throat EYES: Denies changes in vision Resp: Denies cough, denies shortness of breath Cardiac: Denies chest pain GI: Denies abdominal pain, had some increased ostomy output yesterday, denies nausea/vomiting : Denies changes in urination Extremity: Denies swelling MSK: Denies weakness Neuro: Did have some slurred speech which is improved, still feels off balance and unsteady Heme: Denies any bleeding or bruising Skin: Denies rashes Psychiatric: No complaints voiced Vital Signs Vital Signs Vital Signs: 04/05/23 10:44 04/05/23 11:07 04/05/23 11:54 Temperature 98.4 F Temperature Source Temporal Pulse Rate 60 56 L Respiratory Rate 18 14 Blood Pressure 180/106 H 135/81 H Blood Pressure Mean 130 99 Pulse Ox 95 94 Oxygen Delivery Method Room Air Room Air Room Air 04/05/23 13:27 Temperature Temperature Source Pulse Rate Respiratory Rate Blood Pressure 138/88 H Blood Pressure Mean 104 Pulse Ox 94 Oxygen Delivery Method Weight Weight: 82.6 kg Body Mass Index (BMI) 28.5 Physical Exam Narrative General: Alert, oriented, no apparent distress HEENT: Atraumatic, normocephalic Eyes: Anicteric, normal conjunctiva, extraocular movements intact, pupils equal Neck: Supple Respiratory: Clear to auscultation bilaterally, normal respiratory effort Cardiovascular: Regular rate and rhythm GI: Soft, nontender, nondistended Extremities: No edema Musculoskeletal: Strength 5 out of 5 in right upper extremity, 5 out of 5 left upper extremity, 5 out of 5 right lower extremity, 5 out of 5 left lower extremity Neuro: No overt focal neurological deficits, cranial nerves II through XII intact, [id number] without significant difficulty bilaterally Skin: No rashes appreciated Psych: Cooperative Results Lab / Micro Data 04/05/23 11:15 04/05/23 11:15 Labs: Laboratory Results - last 24 hr 04/05/23 11:15: WBC 5.4, RBC 5.03, Hgb 15.4, Hct 44.3, MCV 88.1, MCH 30.6, MCHC 34.8, RDW Std Deviation 40.5, RDW Coeff of Epi 12.4, Plt Count 237, MPV 9.2, Immature Gran % (Auto) 0.400, Neut % (Auto) 59.7, Lymph % (Auto) 27.1, [place] % (Auto) 9.4, Eos % (Auto) 2.8, Baso % (Auto) 0.6, Absolute Neuts (auto) 3.2, Absolute Lymphs (auto) 1.47, Nucleated RBC % 0, PT Cancelled, INR Cancelled, AP TT Cancelled, Sodium 140, Potassium 3.9, Chloride 113 H, Carbon Dioxide 24.0, Anion Gap 3 L, BUN 11, Creatinine 0.93, Estim Creat Clear Calc 71.68, Est GFR (MDRD) Af Amer 102, Est GFR (MDRD) Non-Af 84, BUN/Creatinine Ratio 11.8, Glucose 104, Calcium 9.0 04/05/23 12:10: PT 12.7, INR 1.0, APTT 25.1 Imaging Radiology Impression Head/Neck CTA 04/05/23 12:26 IMPRESSION: Minimal plaque formation at the origin of the right internal carotid artery causing less than 50% stenosis. Electronically Signed: Nic Johns MD at 13:15 EST , Chest X-Ray 04/05/23 12:40 IMPRESSION: No acute abnormality is seen. Electronically Signed: Nic Johns MD at 12:48 EST , Assessment & Plan Assessment/Plan (1) Slurred speech: (2) Colon cancer: PLAN: Plan # Off balance and difficulty writing/neurosymptoms -Admit to tele -CTA head and neck no acute process -MRI ordered -NIH q4hr -asa, statin -Echo w/ bubble study -PT/OT/Speech eval -Hold BP medications to allow for permissive hypertension for 24 hours unless SBP greater than 220 or DBP greater than 120 or until stroke is ruled out #Hypertension -Holding losartan at this time # History of colon cancer -With ostomy -Reportedly cancer free told he did not have to return in 2021 #DVT ppx: lovenox subq Criss Garcia MD Charges/Coding Visit Charges Inpatient E&M: 78552 Init Hosp L1
--- NOTE | 2023-04-05 14:49 | ECHOD_ITS ---
Reason For Study: TIA/CVA Procedure This was a 2D Doppler, Color Flow transthoracic echocardiogram. Exam performed in department. Left Ventricle Normal left ventricle. The estimated ejection fraction is 55-60 %. Right Ventricle Normal right ventricle. Normal systolic function. Atria Normal left atrium. Normal right atrium. Mitral Valve The mitral valve is structurally normal. No prolapse or stenosis seen. Tricuspid Valve Normal tricuspid valve. Trivial tricuspid valve insufficiency. Aortic Valve Trisinus/trileaflet aortic valve. Pulmonic Valve The pulmonic valve is not well visualized. Great Vessels Normal aortic root. Pericardium/Pleural No pericardial effusion. Medication Performed a rapid injection of agitated mix of 9 cc saline and 1cc air to assess for atrial septal defect. MMode/2D Measurements & Calculations LVIDd: 4.7 cm IVSd: 1.1 cm Ao root diam: 2.9 cm LVIDs: 2.8 cm LVPWd: 1.0 cm FS: 40.0 % LAV(MOD-bp): 45.5 ml LVAd ap4: 27.9 cm2 LVAd ap2: 26.2 cm2 LAV(MOD-bp) Indexed: 23.4 ml/m2 LVLd ap4: 8.0 cm LVLd ap2: 7.9 cm LAV(MOD-sp2): 36.8 ml EDV(MOD-sp4): 78.4 ml EDV(MOD-sp2): 74.0 ml LAV(MOD-sp4): 47.5 ml EDV(sp4-el): 82.1 ml EDV(sp2-el): 73.2 ml LVAs ap4: 14.3 cm2 LVAs ap2: 14.4 cm2 LVLs ap4: 6.8 cm LVLs ap2: 6.9 cm ESV(MOD-sp4): 26.3 ml ESV(MOD-sp2): 27.9 ml ESV(sp4-el): 25.7 ml ESV(sp2-el): 25.5 ml EF(MOD-sp4): 66.5 % EF(MOD-sp2): 62.3 % EF(sp4-el): 68.7 % SV(MOD-sp4): 52.2 ml SV(MOD-sp2): 46.1 ml SV(sp4-el): 56.4 ml LA A4 area: 16.8 cm2 LA dimension(2D): 4.0 cm RA A4 area: 14.0 cm2 Time Measurements MV dec time: 0.26 sec Doppler Measurements & Calculations MV E max lavon: 77.9 cm/sec Lat Peak E' Lavon: 8.5 cm/sec Med Peak E' Lavon: 8.9 cm/sec MV A max lavon: 103.5 cm/sec E/E' lat: 9.1 E/E' med: 8.7 MV E/A: 0.75 MV V2 max: 108.1 cm/sec MV P1/2t max lavon: 69.4 cm/sec Ao V2 max: 149.7 cm/sec MV max P.7 mmHg MV P1/2t: 104.1 msec Ao max P.0 mmHg MV V2 mean: 45.1 cm/sec Ao V2 mean: 96.9 cm/sec MV mean P.0 mmHg MV dec slope: 195.2 cm/sec2 Ao mean P.5 mmHg MV V2 VTI: 31.7 cm MVA(P1/2t): 2.1 cm2 Ao V2 VTI: 32.2 cm AV (velocity ratio): 0.76 LV V1 max: 116.1 cm/sec PA V2 max: 156.4 cm/sec TR max lavon: 226.1 cm/sec LV V1 max P.4 mmHg PA V2 mean: 114.4 cm/sec TR max P.4 mmHg LV V1 mean P.7 mmHg LV V1 mean: 75.2 cm/sec LV V1 VTI: 24.3 cm ECHO/Echo Complete Interpretation Summary The estimated ejection fraction is 55-60 %. Normal LV systolic function Ordering Physician: Criss Garcia Referring Physician: Willow Jiménez Performed By: Juliet Lorenz, GARRY, RVT
--- NOTE | 2023-04-05 14:49 | MRI_ITS ---
We are attempting to reach an attending provider to discuss findings. An addendum with communication details will be sent when the communication is complete. STUDY: MRI BRAIN WITHOUT CONTRAST REASON FOR EXAM: Male, 73 years old. concern for cva, SLURRED SPEECH, UNSTEADY GAIT TECHNIQUE: Standardized multiplanar fat and water weighted pulse sequences were obtained. COMPARISON: CT brain April 05, 2023. CTA brain April 05 2023 FINDINGS: There is moderate cerebral atrophy with widening of the extra-axial spaces and ventricular dilatation. Normal white matter tracts of the supratentorial brain. Small subtle focus of restricted diffusion left daisha. Normal bilateral basal ganglia. Normal thalami. There is no extra-axial fluid accumulation. Normal flow voids within the major intracranial circulation suggesting patency by spin echo criteria. Normal sella turcica, pituitary gland, infundibular stalk, optic chiasm and hypothalamus. Normal tectal plate and pineal gland. Normal midbrain, daisha and medulla. Normal cerebellum. Normal basal cisterns. Normal bilateral temporal bones. Normal bilateral internal auditory canals. Lens implant on the left. Normal visualized paranasal sinuses. Normal calvarium and skull base. Normal visualized soft tissue structures. Normal visualized upper cervical spine. MRI/Brain without Contrast IMPRESSION: Acute or subacute small infarct left daisha Electronically Signed: Harshad Orlando MD at 17:36 EST ,
[2023-04-05] MEDS: Aspirin 325 MG Tablet PO (17:29)
[2023-04-05] MEDS: Atorvastatin Calcium 80 MG Tablet PO (21:32)
[2023-04-06 01:15] VITALS: BP 132/79; PULSE 58; RESP 18; TEMP 36.3; O2SAT 95
[2023-04-06] MEDS: 0.9% Normal Saline (1000mL) 1,000 ML 50 ML IV (01:23)
[2023-04-06 05:00] VITALS: BMI 26.2
[2023-04-06 05:10] VITALS: BP 144/86; PULSE 66; RESP 18; TEMP 36.4; O2SAT 96
[2023-04-06 06:06] LABS: Absolute Lymphocyte Count 1.82 X10^3/uL (0.83-4.51); Absolute Neutrophil Count 3.2 X10^3/uL (2.0-7.7); Basophil# 0.04 X10^3/uL; Basophil% 0.7 % (0-1); Eosinophil# 0.19 X10^3/uL; Eosinophils% 3.2 % (0-5); Hematocrit 42.9 % (40-54); Hemoglobin 14.6 g/dL (13.0-16.5); Lymphocyte # 1.82 X10^3/ul (0.83-4.51); Mean Corpuscular Hgb 30.2 pg (27.0-32.0); Mean Corpuscular Volume 88.8 fL (80-94); Mean Platelet Vol. 9.7 fl (6.2-12.0); Monocyte# 0.58 X10^3/uL; Monocyte% 9.9 % (0-10); NRBC Flagged by Analyzer 0 % (0-5); Neutrophil # 3.22 X10^3/uL (2.7-7.7); Neutrophil % 54.7 % (47-70); Platelet Count 244 K/mm3 (150-450); RBC Distribution Width CV 12.4 % (11.6-14.6); RBC Distribution Width SD 40.6 fl (35.1-43.9); Red Blood Count 4.83 M/mm3 (4.6-6.2); White Blood Count 5.9 K/mm3 (4.4-11.0)
[2023-04-06 06:58] LABS: Anion Gap 4 (5-15); BUN 16 mg/dL (7-18); BUN/Creat Ratio 16.8 RATIO (10-20); Calcium,Total 8.9 mg/dL (8.5-10.1); Chloride 112 mmol/L (98-107); Cholesterol 193 mg/dL (200); Creatinine, Serum 0.95 mg/dL (0.70-1.30); EST Glomerular Filtration Rate 82 mL/min (>60); Est Glom Filt Rate - Afr Amer 100 mL/min (>60); Estimated Creatinine Clearance 63.78 ml/min; Glucose 94 mg/dL (74-106); High Density Lipoprotein 49 mg/dL; Potassium 3.7 mmol/L (3.5-5.1); Sodium Level 141 mmol/L (136-145); Thyroid Stim Hormone (TSH) 2.94 uIU/mL (0.358-3.74); Triglycerides 51 mg/dL; Very Low Density Lipoprotein 10 mg/dL (5-40)
[2023-04-06 07:28] VITALS: O2SAT 96
--- NOTE | 2023-04-06 09:05 | PN.HOSP_ITS ---
Reason for Visit Reason for Visit: Diagnoses Malignant neoplasm of colon, unspecified (04/05/23) Slurred speech (04/05/23) Objective Data Objective Data Vital Signs: Vital Signs Temp Pulse Resp BP Pulse Ox O2 Del Method 97.6 F L 66 18 144/86 H 96 Room Air 04/06/23 05:10 04/06/23 05:10 04/06/23 05:10 04/06/23 05:10 04/06/23 07:28 04/06/23 07:53 Oxygen Delivery Method Room Air Weight: 167 lb 1.766 oz Body Mass Index (BMI) 26.2 Intake & Output: Intake and Output for Last 24 Hours 04/04/23 04/05/23 04/06/23 23:59 23:59 23:59 Intake Total 240 / 240 Balance 240 / 240 Lab / Micro Data 04/06/23 04:40 04/06/23 04:40 Labs: Laboratory Results - last 24 hr 04/05/23 11:15: WBC 5.4, RBC 5.03, Hgb 15.4, Hct 44.3, MCV 88.1, MCH 30.6, MCHC 34.8, RDW Std Deviation 40.5, RDW Coeff of Epi 12.4, Plt Count 237, MPV 9.2, Immature Gran % (Auto) 0.400, Neut % (Auto) 59.7, Lymph % (Auto) 27.1, [place] % (Auto) 9.4, Eos % (Auto) 2.8, Baso % (Auto) 0.6, Absolute Neuts (auto) 3.2, Absolute Lymphs (auto) 1.47, Nucleated RBC % 0, PT Cancelled, INR Cancelled, APTT Cancelled, Sodium 140, Potassium 3.9, Chloride 113 H, Carbon Dioxide 24.0, Anion Gap 3 L, BUN 11, Creatinine 0.93, Estim Creat Clear Calc 71.68, Est GFR (MDRD) Af Amer 102, Est GFR (MDRD) Non-Af 84, BUN/Creatinine Ratio 11.8, Glucose 104, Calcium 9.0 04/05/23 12:10: PT 12.7, INR 1.0, APTT 25.1 04/06/23 04:40: WBC 5.9, RBC 4.83, Hgb 14.6, Hct 42.9, MCV 88.8, MCH 30.2, MCHC 34.0, RDW Std Deviation 40.6, RDW Coeff of Epi 12.4, Plt Count 244, MPV 9.7, Immature Gran % (Auto) 0.500, Neut % (Auto) 54.7, Lymph % (Auto) 31.0, [place] % (Auto) 9.9, Eos % (Auto) 3.2, Baso % (Auto) 0.7, Absolute Neuts (auto) 3.2, Absolute Lymphs (auto) 1.82, Nucleated RBC % 0, Sodium 141, Potassium 3.7, Chloride 112 H, Carbon Dioxide 25.0, Anion Gap 4 L, BUN 16, Creatinine 0.95, Estim Creat Clear Calc 63.78, Est GFR (MDRD) Af Amer 100, Est GFR (MDRD) Non-Af 82, BUN/Creatinine Ratio 16.8, Glucose 94, Calcium 8.9, Triglycerides 51, Cholesterol 193, LDL Cholesterol 134 H, VLDL Cholesterol 10, HDL Cholesterol 49, TSH 2.94 Radiography Diagnostic Testing: Radiology Impression Head/Neck CTA 04/05/23 12:26 IMPRESSION: Minimal plaque formation at the origin of the right internal carotid artery causing less than 50% stenosis. Electronically Signed: Nic Johns MD at 13:15 EST , Chest X-Ray 04/05/23 12:40 IMPRESSION: No acute abnormality is seen. Electronically Signed: Nic Johns MD at 12:48 EST , Brain MRI 04/05/23 14:49 IMPRESSION: Acute or subacute small infarct left daisha Electronically Signed: Harshad Orlando MD at 17:36 EST Reading Location ID and State: [facility] / [place] Tel , Service support , ADDENDUM: 04/05/23 1750 IMPRESSION: Acute or subacute small infarct left daisha N.B. : The above Results were Read Back by Harshad Orlando MD to Dahiana Muñoz RN, and understanding confirmed on 04/05/2023 17:43:42 (ET). Electronically Signed: Harshad Orlando MD at 17:36 EST Reading Location ID and State: [facility] / [place] Tel , Service support , Physical Exam Narrative General: Alert, oriented, no apparent distress HEENT: Atraumatic, normocephalic Eyes: Anicteric, normal conjunctiva, extraocular movements intact, pupils equal Neck: Supple Respiratory: Clear to auscultation bilaterally, normal respiratory effort Cardiovascular: Regular rate and rhythm GI: Soft, nontender, nondistended Extremities: No edema Musculoskeletal: Strength 5 out of 5 in right upper extremity, 5 out of 5 left upper extremity, 5 out of 5 right lower extremity, 5 out of 5 left lower extremity Neuro: No overt focal neurological deficits, cranial nerves II through XII intact, [id number] without significant difficulty bilaterally Skin: No rashes appreciated Psych: Cooperative Assessment & Plan Assessment/Plan (1) Slurred speech: (2) Colon cancer: PLAN: Plan This is 73-year-old gentleman who was admitted after he had slurred speech, off balance that started 2 days ago. Patient was doing some yard work and had to stop because difficulty in equilibrium and walking. Had dizziness. also noted some slurring of speech/language deficit. Patient also had difficulty in writing some numbers from right hand. Speech improving. 1. Acute/subacute small infarct in left daisha consistent with acute ischemic infarct: Patient is being admitted in PCU. CTA head and neck shows minimal plaque formation at origin of right ICA less than 50%. MRI brain shows acute/subacute small infarct in left daisha. Twelve-lead EKG shows sinus bradycardia 56 bpm. QTc interval normal. No acute ST-T changes. PT, OT, speech therapy/swallow evaluation and management, nursing NIH stroke scale, BP and glucose monitoring and control as per stroke protocol. 2D echo with bubble contrast study ordered. TSH 2.94. LDL 134. Glucose 94 in BMP. A1c ordered. SOC neuroconsult. #Hypertension -Holding losartan at this time # History of colon cancer -With ostomy -Reportedly cancer free told he did not have to return in 2021 #DVT ppx: lovenox subq
[2023-04-06 09:10] VITALS: BP 140/71; PULSE 61; RESP 18; TEMP 36.7; O2SAT 92
[2023-04-06] MEDS: Enoxaparin 40 MG/0.4 ML Syringe SC (09:15)
[2023-04-06] MEDS: Aspirin 81 MG TAB.CHEW PO (09:15)
[2023-04-06 11:30] LABS: Hemoglobin A1c 5.5 % (3.8-5.6)
--- NOTE | 2023-04-06 11:49 | STROKE.CONS ---
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 Assuming no significant finding, no further neurovascular work up required - family questions answered HPI Consult Data Date of Consult: 04/06/23 HPI Narrative HPI Narrative: JAY AUSTIN, is a 73 M who presents with imbalance and some fine motor difficulties. Symptoms have largely improved. MRI has demonstrated acute pontine stroke [facility] Medical History Benign neoplasm of left ear Colon cancer Home Medications losartan 25 mg tablet 25 mg PO DAILY 04/05/23 [History Last Taken 04/05/23 09:00] Allergy/AdvReac Type Severity Reaction Status Date / Time latex Allergy Rash Verified 09/01/22 17:06 Family History Mother Cancer Father Substance abuse Surgical History Colostomy in place H/O eye surgery S/P ear surgery Social History household members: spouse Smoking Status: Never smoker alcohol intake: never substance use type: does not use Vital Signs Vital Signs Vital Signs: 04/05/23 11:54 04/05/23 13:27 04/05/23 15:01 Temperature 97.6 F L Temperature Source Pulse Rate 56 L 50 L Pulse Strength Respiratory Rate 14 16 Respiratory Effort Respiratory Depth Respiratory Pattern Blood Pressure 135/81 H 138/88 H 153/84 H Blood Pressure Mean 99 104 107 Blood Pressure Source Blood Pressure Position Blood Pressure Location Pulse Ox 94 94 97 Oxygen Delivery Method Room Air 04/05/23 17:15 04/05/23 18:15 04/05/23 20:34 Temperature 97.9 F Temperature Source Temporal Pulse Rate 60 Pulse Strength Respiratory Rate 18 Respiratory Effort Normal Non-Labored Respiratory Depth Normal Respiratory Pattern Normal Blood Pressure 157/85 H Blood Pressure Mean 109 Blood Pressure Source Monitor Blood Pressure Position Semi-Fowlers Blood Pressure Location Left Arm Pulse Ox 97 95 Oxygen Delivery Method Room Air Room Air Room Air 04/05/23 21:22 04/06/23 01:15 04/05/23 22:00 Temperature 97.4 F L 97.4 F L Temperature Source Temporal Temporal Pulse Rate 60 58 L Pulse Strength Normal (2+) Respiratory Rate 18 18 Respiratory Effort Respiratory Depth Respiratory Pattern Blood Pressure 146/74 H 132/79 H Blood Pressure Mean 98 96 Blood Pressure Source Monitor Monitor Blood Pressure Position Semi-Fowlers Semi-Fowlers Blood Pressure Location Left Arm Right Arm Pulse Ox 95 95 Oxygen Delivery Method Room Air Room Air 04/05/23 22:00 04/06/23 01:15 04/06/23 05:10 Temperature 97.6 F L Temperature Source Temporal Pulse Rate 66 Pulse Strength Respiratory Rate 18 Respiratory Effort Normal Non-Labored Normal Non-Labored Respiratory Depth Normal Normal Respiratory Pattern Normal Normal Blood Pressure 144/86 H Blood Pressure Mean 105 Blood Pressure Source Monitor Blood Pressure Position Semi-Fowlers Blood Pressure Location Left Arm Pulse Ox 96 Oxygen Delivery Method Room Air Room Air Room Air 04/06/23 07:52 04/06/23 07:53 04/06/23 07:28 Temperature Temperature Source Pulse Rate Pulse Strength Normal (2+) Respiratory Rate Respiratory Effort Respiratory Depth Respiratory Pattern Blood Pressure Blood Pressure Mean Blood Pressure Source Blood Pressure Position Blood Pressure Location Pulse Ox 96 Oxygen Delivery Method Room Air Room Air 04/06/23 09:10 Temperature 98.1 F Temperature Source Oral Pulse Rate 61 Pulse Strength Respiratory Rate 18 Respiratory Effort Respiratory Depth Respiratory Pattern Blood Pressure 140/71 H Blood Pressure Mean 94 Blood Pressure Source Monitor Blood Pressure Position Sitting Blood Pressure Location Right Arm Pulse Ox 92 Oxygen Delivery Method Room Air Weight Weight: 75.8 kg Body Mass Index (BMI) 26.2 EEG Results Procedure Details EEG Procedure Details: JAY AUSTIN is a 73 year old M with a past medical history of , who presents for evaluation of Electroencephalogram on DATE at TIME NIHSS NIHSS Nursing Documentation NIHSS Nursing Documentation: NIH Stroke Scale Start: 04/05/23 11:30 Freq: Status: Discharge Protocol: Activity Type Activity Date Activity User E-sign Co-sign Detail Recorded Client Recorded Date Recorded By Document 04/05/23 11:30 HO Desktop 04/05/23 11:30 HO 04/05/23 11:30 NIH Stroke Scale [NIHSS] A score of 0 is normal or asymptomatic . Total possible score is 42. Inpatient: RN or Physician to activate a stroke alert for onset of new stroke symptoms or with NIHSS increase >/= 3 points. Following change in neurological status, NIHSS will be performed per physician order or more frequently PRN. -1a. Level of Consciousness Alert; keenly responsive -1b. LOC Questions Answers BOTH questions correctly. -1c. LOC Commands Performs both tasks correctly . -2. Best Gaze Normal -3. Visual No visual loss -4. Facial Palsy Normal symmetrical movements -5a. Left Arm No drift; arm holds 90 (or 45 ) degrees for full 10 seconds -5b. Right Arm No drift; arm holds 90 (or 45 ) degrees for full 10 seconds -6a. Left Leg No drift; leg holds 30-degree position for full 5 seconds -6b. Right Leg No drift; leg holds 30-degree position for full 5 seconds -7. Limb Ataxia Absent -8. Sensory Normal; no sensory loss -9. Best Language No aphasia; normal -10. Dysarthria Normal -11. Extinction and Inattention No abnormality -Total 0 Query Text:A score of 0 is normal or asymptomatic. Total possible score is 42 . ED: Notify Physician for NIHSS increase by > / = 3 points. Inpatient: RN or Physician to activate a stroke alert for NIHSS increase of > / = 3 points. NIHSS: Ischemic Stroke/TIA Start: 04/05/23 15:28 Text: For PCU Patients: NIH and Neuro Check every 4 Status: Active hours and PRN Freq: [id number] Protocol: Activity Type Activity Date Activity User E-sign Co-sign Detail Recorded Client Recorded Date Recorded By Document 04/06/23 09:10 AMG Desktop 04/06/23 09:14 AMG 04/06/23 09:10 -1a. Level of Consciousness Alert; keenly responsive -1b. LOC Questions Answers BOTH questions correctly. -1c. LOC Commands Performs both tasks correctly . -2. Best Gaze Normal -3. Visual No visual loss -4. Facial Palsy Normal symmetrical movements -5a. Left Arm No drift; arm holds 90 (or 45 ) degrees for full 10 seconds -5b. Right Arm No drift; arm holds 90 (or 45 ) degrees for full 10 seconds -6a. Left Leg No drift; leg holds 30-degree position for full 5 seconds -6b. Right Leg No drift; leg holds 30-degree position for full 5 seconds -7. Limb Ataxia Absent -8. Sensory Normal; no sensory loss -9. Best Language No aphasia; normal -10. Dysarthria Mild-to- moderate dysarthria; -11. Extinction and Inattention No abnormality -Total 1 Query Text:A score of 0 is normal or asymptomatic. Total possible score is 42 . ED: Notify Physician for NIHSS increase by > / = 3 points. Inpatient: RN or Physician to activate a stroke alert for NIHSS increase of > / = 3 points. Coma Scale [Assess] -Eye Opening Spontaneous -Motor Obeys Commands -Verbal Oriented [Total] -Coma Scale Total 15 Lab / Micro Data 04/06/23 04:40 04/06/23 04:40 Labs: Laboratory Results - last 24 hr 04/05/23 12:10: PT 12.7, INR 1.0, APTT 25.1 04/06/23 04:40: WBC 5.9, RBC 4.83, Hgb 14.6, Hct 42.9, MCV 88.8, MCH 30.2, MCHC 34.0, RDW Std Deviation 40.6, RDW Coeff of Epi 12.4, Plt Count 244, MPV 9.7, Immature Gran % (Auto) 0.500, Neut % (Auto) 54.7, Lymph % (Auto) 31.0, [place] % (Auto) 9.9, Eos % (Auto) 3.2, Baso % (Auto) 0.7, Absolute Neuts (auto) 3.2, Absolute Lymphs (auto) 1.82, Nucleated RBC % 0, Sodium 141, Potassium 3.7, Chloride 112 H, Carbon Dioxide 25.0, Anion Gap 4 L, BUN 16, Creatinine 0.95, Estim Creat Clear Calc 63.78, Est GFR (MDRD) Af Amer 100, Est GFR (MDRD) Non-Af 82, BUN/Creatinine Ratio 16.8, Glucose 94, Hemoglobin A1c 5.5, Calcium 8.9, Triglycerides 51, Cholesterol 193, LDL Cholesterol 134 H, VLDL Cholesterol 10, HDL Cholesterol 49, TSH 2.94 Imaging Radiology Impression Head/Neck CTA 04/05/23 12:26 IMPRESSION: Minimal plaque formation at the origin of the right internal carotid artery causing less than 50% stenosis. Electronically Signed: Nic Johns MD at 13:15 EST , Chest X-Ray 04/05/23 12:40 IMPRESSION: No acute abnormality is seen. Electronically Signed: Nic Johns MD at 12:48 EST , Brain MRI 04/05/23 14:49 IMPRESSION: Acute or subacute small infarct left daisha Electronically Signed: Harshad Orlando MD at 17:36 EST Reading Location ID and State: [address] [place] [address] Tel , Service support , ADDENDUM: 04/05/23 1750 IMPRESSION: Acute or subacute small infarct left daisha N.B. : The above Results were Read Back by Harshad Orlando MD to Dahiana Muñoz RN, and understanding confirmed on 04/05/2023 17:43:42 (ET). Electronically Signed: Harshad Orlando MD at 17:36 EST Reading Location ID and State: [address] [place] [address] Tel , Service support , Active Medications Active Medications Active Medications: Current Medications Generic Name Dose Route Start Last Admin Trade Name Freq PRN Reason Stop Dose Admin Acetaminophen 650 mg 04/05/23 15:28 Acetaminophen 325 Mg Tablet PO Q6H PRN PRN Pain 1-10 Or Fever >100.7 Albuterol Sulfate 2.5 mg 04/05/23 15:28 Albuterol 2.5 Mg/3 Ml Vial.Neb. INHALATION Q2H PRN PRN SOB/Wheezing Aspirin 81 mg 04/06/23 08:00 04/06/23 09:15 Aspirin 81 Mg Tab.Chew PO 81 mg BREAKFAST SERGIO Administration Atorvastatin Calcium 80 mg 04/05/23 22:00 04/05/23 21:32 Atorvastatin Calcium 80 Mg Tablet PO 80 mg QHS SERGIO Administration Enoxaparin Sodium 40 mg 04/06/23 10:00 04/06/23 09:15 Enoxaparin 40 Mg/0.4 Ml Syringe SC 40 mg DAILY SERGIO Administration Hydralazine HCl 5 mg 04/05/23 15:28 Hydralazine 20 Mg/Ml Vial IV Q30M PRN to maintain BP goals Sodium Chloride 1,000 mls @ 50 mls/hr 04/05/23 11:00 04/06/23 01:23 IV 50 mls/hr .Q20H SERGIO Administration Labetalol HCl 10 - 20 mg 04/05/23 15:28 Labetalol (Prefilled) 20 Mg/4 Ml IV Q10M PRN PRN to Maintain BP Goals Melatonin 3 mg 04/05/23 15:28 Melatonin 3 Mg Tablet PO QHS PRN PRN INSOMNIA Ondansetron HCl 4 mg 04/05/23 15:28 Ondansetron 4 Mg/2 Ml Vial IV Q8H PRN PRN NAUSEA/VOMITING Polyethylene Glycol 17 gm 04/05/23 15:28 Polyethylene Glycol 3350 17 Gm Packet PO DAILY PRN constipation Senna/Docusate Sodium 2 tablet 04/05/23 15:28 Senna/Docusate Sodium 1 Tablet PO BID PRN PRN Constipation Sodium Chloride 10 - 40 ml 04/05/23 15:35 0.9% Saline Lock 10 Ml Syringe IV UD PRN SALINE FLUSH
[2023-04-06 12:00] VITALS: BP 140/88; PULSE 61; RESP 18; TEMP 36.8; O2SAT 92
--- NOTE | 2023-04-06 13:00 | CASEMGMT ---
Social Work PHQ-9 completed. Pt scored a 3, symptoms all related to recent stroke. Pt did speak about losing a friend recently about a month ago and being sad about that, support offered. Otherwise, no indications of depression showing from PHQ-9. ALBERTINA Aguilar
--- NOTE | 2023-04-06 13:04 | CASEMGMT ---
Social Work SW met w/pt, and daughter in room in regard to prior level of function and anticipated discharge. PCP: Willow Jiménez NP Specialists: Dr. Foss ENT. He is a cancer survivor and did have oncology physicians but is cancer free for two years Insurance: Medicare, [employer], [employer] for prescriptions Pharmacy: [facility] here in [place] LNOK: , daughter LW/POA: POA on file, is POA. LW also on file Living arrangements: Pt lives w/ in one story home, flight of steps to the basement. He does go down to the basement to use the bathroom. Prior level of function: Pt independent with all ADLs. Pt drives. DME: None History of HHC, outpt therapy, inpt rehab SNF: Pt had [facility] HH at one point when he had cancer. Otherwise, has not had outpt therapy, no history of SNF or rehab. SW spoke w/pt and family about options at discharge including rehab/SNF, home care, outpt therapy. They do not feel going somewhere for rehab is needed. Pt is not homebound. They would like prescriptions for outpt speech therapy and PT. SW let CM know. Otherwise, no further needs, pt home at discharge. ALBERTINA Aguilar
--- NOTE | 2023-04-06 14:18 | CASEMGMT ---
RN CM NOTE: Script prepared for OP PT and ST and placed on pt's chart. Green sheet placed on chart w/instructions for staff to have MD sign script and provide to pt @ discharge. Vikram BORDEN RN CM
--- NOTE | 2023-04-06 14:47 | DCINST_ITS ---
Discharge Instructions Diet Discharge Diet: Low fat / Low cholesterol and 2000 mg Sodium Diet Activity Discharge Activity: Return to Normal Activity Weight Bearing Status: Weight bearing as tolerated Dressing / Incision Call your doctor if you observe: Fever of 101 or Higher, Coldness, Increased Pain, Numbness or Tingling, Change in Color, Inability to urinate, Inability to have a bowel movement, Shortness of breath, Dizziness, Fainting spells, Swelling in the ankles, Chest pain, Prolonged hiccupping, Increased palpitations (irregular heartbeat) and Calf discomfort Follow Up Care When: IN 2 WEEKS Test Results: Test results from this visit will be discussed in further detail at your follow- up appointment, if applicable. Discharge Plan Admission Admit Date/Time: 04/06/23 12:12 Primary Reason for Your Visit: Left pontine ischemic infarct Attending Provider: Kannan Foster Primary Care Provider: Willow Jiménez NP Consulting Providers: Pantera Seth; Justyna Anna; Florinda Joyner; Natali Melvin; Alyce Solis; Yayo Chamorro; Rekha Choudhary; Ruben Hooker; Adam Welch; Tere Garcia; Hima Alvarado; Rina Avendaño; Pamela Hanna; Julia Bustamante; Ori Daigle; Tial Dhillon; Dann Ann; Emiliana Cody; Angela Frias; Criss Garcia Instructions Additional Instructions / Restrictions: Outpatient PT and OT rehab. 30-day event monitor. Discharge Orders/Prescriptions Prescriptions: New atorvastatin 80 mg Tablet 80 mg PO QHS 30 Days Qty: 30 2RF aspirin 81 mg Tablet,Chewable 81 mg PO BREAKFAST 30 Days Qty: 30 3RF losartan 50 mg tablet 50 mg PO DAILY 30 Days Qty: 30 2RF Discontinued losartan 25 mg tablet 25 mg PO DAILY Other Ambulatory Orders: 30 Day Event Recorder Preventi (Urgent) Timeframe: 1 Day Facility: [facility] - Location: Cardiovascular Services Ordered By: Dr. Kannan Foster Referrals / Follow Up: Hugh Kelly MD [Non-Staff -Ordering Privileges] - Within 1 Month Willow Jiménez NP, DEVELOPMENTAL BEHAVIORAL PHYSICIAN-C [Primary Care Provider] - Within 1 Week Disposition Disposition (needs filled in before D/C Order can be placed): Home, Self Care
--- NOTE | 2023-04-06 14:55 | DS.PCM_ITS ---
Providers Date of Admission: 04/06/23 Primary Care Physician: JEY Madrid Consultations 04/05/23 15:28 Consult: Tele-Neurology Routine Consulting Provider: [facility] Reason for Consult: Acute Ischemic Stroke/TIA EMERGENT Consult: No MD Notified: Yes Date Notified: 04/05/23 Time Notified: 14:30 Method of Notification: Answering Service Nursing Unit Staff Notify [facility] of Tele-Neurology Consult: Yes Reason For Visit: DYSPHASIA STROKE Diagnosis Discharge Diagnosis (1) Slurred speech: Status: Acute Code(s): R47.81 - Slurred speech (2) Colon cancer: Status: Acute Code(s): C18.9 - Malignant neoplasm of colon, unspecified Plan This is 73-year-old gentleman who was admitted after he had slurred speech, off balance that started 2 days ago. Patient was doing some yard work and had to stop because difficulty in equilibrium and walking. Had dizziness. also noted some slurring of speech/language deficit. Patient also had difficulty in writing some numbers from right hand. Speech improving. 1. Acute/subacute small infarct in left daisha consistent with acute ischemic infarct: Patient is being admitted in PCU. CTA head and neck shows minimal plaque formation at origin of right ICA less than 50%. MRI brain shows acute/subacute small infarct in left daisha. Twelve-lead EKG shows sinus bradycardia 56 bpm. QTc interval normal. No acute ST-T changes. PT, OT, spe ech therapy/swallow evaluation and management, nursing NIH stroke scale, BP and glucose monitoring and control as per stroke protocol. 2D echo with bubble contrast study ordered. TSH 2.94. LDL 134. Glucose 94 in BMP. A1c 5.5% SOC neuroconsult was done and recommended baby aspirin to continue, atorvastatin 80 mg daily. Optimize blood pressure/hypertension. TTE shows trivial TR otherwise reported normal. Agitated saline study does not show ASD/PFO. I talked to the patient and his in detail and answered all the questions. 30-day event monitor ordered. Prescriptions for baby aspirin atorvastatin and losartan 50 mg daily sent to the patient's preferred pharmacy. #Hypertension -Patient on losartan 25 mg daily at home. Patient's stated his usually blood pressure is around 140/80-150/80 therefore losartan dose increased to 50 mg daily and new prescription sent to patient's pharmacy. # History of colon cancer -With ostomy -Reportedly cancer free told he did not have to return in 2021 #DVT ppx: lovenox subq Discharge medication reconciliation done. Discharge follow-up instructions completed. Discharge process discussed with the patient and all questions were answered to patient's satisfaction. Follow with PCP in 1 to 2 weeks Total time spent, exact 35 minutes on discharge meds reconciliation, examination, coordination of care with nurses and ancillary staff, review of imaging and blood test and discussion with the patient on follow-up instructions. Medications at Discharge Home Medications aspirin 81 mg chewable tablet 81 mg PO BREAKFAST 30 days #30 tabs 04/06/23 atorvastatin 80 mg tablet 80 mg PO QHS 30 days #30 tabs 04/06/23 losartan 50 mg tablet 50 mg PO DAILY 1 month #30 tabs 04/06/23 Physical Exam Narrative Physical exam: General: Alert, Oriented x3, Cooperative HEENT: Atraumatic, PERRLA, EOMI, Normocephalic Oral: No Gingival or Mucosal Lesions/ Ulcerations Neck: Supple, No JVD, Negative Carotid Bruits Chest wall/Lungs: Air entry diminished in bilateral lung bases. No crepitation/rhonchi Cardiovascular: Regular rate, Regular Rhythm, Normal S1, Normal S2, No M/G/R Abdomen: Bowel Sounds Present, Soft, Non Tender, Non-Distended. Colostomy : No dysuria. No renal angle tenderness. No suprapubic tenderness. Extremities: No edema, Capillary Refill Less than 3 Seconds Skin: No rashes, No breakdown Musculoskeletal: No Tenderness to Palpation of Joints or Extremities. Muscle strength 5/5 at major joints. Neurological: Cranial nerves II-XII grossly intact, DTR 2+/4. Having problems when writing from right dominant hand. NIH stroke scale 0. Psych/Mental Status: Normal Affect, Appropriate. Weight / BMI Weight Weight: 167 lb 1.766 oz Body Mass Index (BMI) 26.2 ABG / Lab / Microbiology Data 04/06/23 04:40 04/06/23 04:40 Laboratory: Laboratory Results - last 24 hr 04/06/23 04:40: WBC 5.9, RBC 4.83, Hgb 14.6, Hct 42.9, MCV 88.8, MCH 30.2, MCHC 34.0, RDW Std Deviation 40.6, RDW Coeff of Epi 12.4, Plt Count 244, MPV 9.7, Immature Gran % (Auto) 0.500, Neut % (Auto) 54.7, Lymph % (Auto) 31.0, [place] % (Auto) 9.9, Eos % (Auto) 3.2, Baso % (Auto) 0.7, Absolute Neuts (auto) 3.2, Absolute Lymphs (auto) 1.82, Nucleated RBC % 0, Sodium 141, Potassium 3.7, Chloride 112 H, Carbon Dioxide 25.0, Anion Gap 4 L, BUN 16, Creatinine 0.95, Estim Creat Clear Calc 63.78, Est GFR (MDRD) Af Amer 100, Est GFR (MDRD) Non-Af 82, BUN/Creatinine Ratio 16.8, Glucose 94, Hemoglobin A1c 5.5, Calcium 8.9, Triglycerides 51, Cholesterol 193, LDL Cholesterol 134 H, VLDL Cholesterol 10, HDL Cholesterol 49, TSH 2.94 Radiography Diagnostic Testing: Radiology Impression Brain MRI 04/05/23 14:49 IMPRESSION: Acute or subacute small infarct left daisha Electronically Signed: Harshad Orlando MD at 17:36 EST , ADDENDUM: 04/05/23 1750 IMPRESSION: Acute or subacute small infarct left daisha N.B. : The above Results were Read Back by Harshad Orlando MD to Dahiana Muñoz RN, and understanding confirmed on 04/05/2023 17:43:42 (ET). Electronically Signed: Harshad Orlando MD at 17:36 EST , Echocardiogram 04/05/23 14:49 Interpretation Summary The estimated ejection fraction is 55-60 %. Normal LV systolic function Ordering Physician: Criss Garcia Referring Physician: Willow Jiménez Performed By: Juliet Lorenz RDCS, RVT Meaningful Use Info Meaningful Use Diagnoses (Choose all that apply): Ischemic CVA CVA Therapy Assessed for PT,OT and/or ST?: Yes Ischemic Stroke Antithrombotic order at d/c?: Yes Dx of Atrial fib/flutter?: No Anticoagulant at discharge?: Yes Statins at discharge?: Yes Primary Dx Acute Ischemic CVA?: Yes Discharge Plan Admission Admit Date/Time: 04/06/23 12:12 Primary Reason for Your Visit: Left pontine ischemic infarct Attending Provider: Kannan Foster Primary Care Provider: Willow Jiménez CONCERT PIANIST Consulting Providers: Pantera Seth; Justyna Anna; Florinda Joyner; Natali Melvin; Alyce Solis; Yayo Chamorro; Rekha Choudhary; Ruben Hooker; Adam Welch; Tere Garcia; Hima Alvarado; Rina Avendaño; Pamela Hanna; Julia Bustamante; Ori Daigle; Tila Dhillon; Dann Ann; Emiliana Cody; Angela Frias; Criss Garcia Instructions Additional Instructions / Restrictions: Outpatient PT and OT rehab. 30-day event monitor. Discharge Orders/Prescriptions Prescriptions: New atorvastatin 80 mg Tablet 80 mg PO QHS 30 Days Qty: 30 2RF aspirin 81 mg Tablet,Chewable 81 mg PO BREAKFAST 30 Days Qty: 30 3RF losartan 50 mg tablet 50 mg PO DAILY 30 Days Qty: 30 2RF Discontinued losartan 25 mg tablet 25 mg PO DAILY Other Ambulatory Orders: 30 Day Event Recorder Preventi (Urgent) Timeframe: 1 Day Facility: [facility] - Location: Cardiovascular Services Ordered By: Dr. Kannan Foster Referrals / Follow Up: Hugh Kelly MD [Non-Staff -Ordering Privileges] - Within 1 Month Willow Jiménez CONCERT PIANIST, CONCERT PIANIST-C [Primary Care Provider] - Within 1 Week Disposition Disposition (needs filled in before D/C Order can be placed): Home, Self Care Charges/Coding Visit Charges Inpatient E&M: 47638 Disch Hosp >30min
[2023-04-06 15:04] VITALS: BMI 26.2
[2023-04-06 15:43] VITALS: BP 129/74; PULSE 75; RESP 18; TEMP 36.9; O2SAT 93
== END 2023-04-06 16:11 | disposition home or self-care (01) | DRG 66 ==
LOC: ED 13:52 → PCU 14:29
PROVIDERS: Admitting Provider Internal Medicine; Emergency Provider Emergency Medicine; PCP Registered Nurse; Visit Provider Internal Medicine
DX: I63.9 Cerebral infarction, unspecified (principal); I10 Essential (primary) hypertension; Z85.038 Personal history of other malignant neoplasm of large intestine
CPT/HCPCS: 36415; 70496; 70498; 70551; 71045; 80048; 80061; 83036; 84443; 85025; 85610; 85730; 92523; 93005; 93306; 94762; 97161; 97165; 99285; J7030; Q9967; A4216

== ENCOUNTER 2023-05-14 10:00 | Outpatient (RCR) | payer MEDICARE, OTHER, SELFPAY ==
--- NOTE | 2023-04-09 12:41 | HP.OTEVAL_ITS ---
Patient's Visit Information Visit Information Visit Information: JAY AUSTIN is a 73 year old M, referred to Occupational Therapy by Dr. Kannan Foster MD, with a diagnosis of CVA. Date of Evaluation: 04/09/23 Occupational Therapist: MELIZA Rollins/Leif, CHT Subjective Subjective: This 73 year old male was seen for OT eval with dx of CVA last sat. was edging beds and noticed he was tired. was feeling off - talked to him on the phone and pt was difficulty with understanding over the phone. discovered slurring his words- refused to go to ER because he felt was vertigo Saturday no change called nurse at Dr. office and they asked him to go to ER- Went to ER MRI conformation of CVA. pt states increase time and difficulty with use of right hand with writing, shaving, doing dishes, buttons at this time. pt states he is ready to get is strength and coordination back in his dominate hand. 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 PT will address this concern. ROM ROM Comments: pt demo with ROM WNL Strength Shoulder: shoulder flexion right 21# left 20# shoulder ext. 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 with ADLS and IADLs pt will demo a increase in right clinical biostatistician strength by 20# to increase pts ind. with ADLs and IADLs by d/c. pt will demo a increase in right pinch strength by 4# to increase pts ind. with ADLS and IADLs by d/c Goal:: pt will demo a increase in right FMS noted by writing legibly in cursive by d/c pt will demo a reduction in 9-hole peg testing by 7 sec. demo increase in FMS speed/dext. by d.c Goal:: pt and family will report no spillage with eating with fork/spoon in 3 weeks to increase pts ind. with self feeding. pt will report increase speed with shaving by d/c to return pt to his PLOF. Rehabilitation General Assessment: pt demo with a dominate side weakness and decrease in his FMS limiting his IND with ADLs and IADLs. pt would benefit from skilled OT services 2-3x week for 4 weeks to return pt to his PLOF. Today therapist ed. pt on FMS as well as shoulder fle/abd ex and was given handout. pt demo understanding and agrees to POC. Rehabilitation Potential: Good Anticipated Interventions Anticipated Interventions: Strengthening, Fine Motor Coord/Nj, Neuro Reeducation, Education re assistive Equipment, Education re Diagnosis, Caregiver Training and Home Program Visit Plan Frequency: 2-3x /Week Duration: 4 Weeks TEXT: Thank you for the opportunity to evaluate your patient. For Medicare and Medicare HMO plans, please review the plan of care and approve it. It will need to be FAXED BACK to us at [phone] for Medicare purposes. Please let me know if there are questions or concerns regarding this plan of care. Physician Signature: Date:
--- NOTE | 2023-04-09 16:03 | HP.PTEVAL ---
Patient's Visit Information Visit Information Visit Information: JAY AUSTIN is a 73 year old M referred to Physical Therapy by Dr. Kannan Foster MD with a diagnosis of ACUTE ISCHEMIC INFARCT LEFT BAILEY. Date of Evaluation: 04/09/23 Physical Therapist: Adam Alejandra PT, Cert MDT, OCS Visit Plan Frequency: 2x /Week Duration: 4 Weeks Plan: PRECAUTIONS: *latex allergy , colostomy bag* PT INNERVATIONS PROGRESSIVE BALANCE PROGRAM ,ENDURANCE PROGRAM ,BLE STRENGTHENING ,AND FUNCTIONAL STRENGTH Subjective Subjective: This 73 y/o male presents to physical therapy CVA left bailey infarct. Patient had CVA 04/04/22 with slurred speech with difficulty walking with decrease balance,thus admitted to [facility] for 2 days . Patient and MRI /CTSCAN and other diagnostics . Recommended PT/OT /speech. Denies pain except cramp in calf . Denies any falls. Right side seems some weaker. Denies paresthesia/tingling in feet but from prior chemo. [facility] [place] with 2 steps and bed /bath on 1st floor . Patient has walk-in shower. Sleep good at night. Bowel/bladder. No visual deficits. I with dressing ADLS dressing and bathing. Spouse does cook. Patient condition affects QOL and function/housework tasks. Patient goals to return to prio level. SOCAIL: VOCATION: retired V Objective Objective: POSTURE: mild forward posture GAIT: reciprocal pattern STAIRS : alternating steps with rails MMT: quads/hams 4/5 ,hip flexion 4-/5 ,hip abd 4-/5 ,ankle 4/5 FLEXABILITY: hamstrings mild tight Balance/Special Test Scores Functional Gait Assessment Score: 19 % Disability: 36.6700 CATSIB Score (Max score 120 seconds): 100 Lower Extremity Functional Score: 25 30 Second Chair Rise Test Seconds: 13 Goals Goal 1:: Patient to be I with balance and endurance program Goal Time Frame: 4-6 Weeks Goal 2:: Patient to improve LFES score by 5 -10 points to improve QOL Goal Time Frame: 4-6 Weeks Goal 3:: Patient to CATSIBE by 5 points to improve balance. Goal 4:: Patient to improve functional gait assessment score by 10 points to improve balance Goal Time Frame: 4-6 Weeks Goal 5:: Patient to demonstrate 70% improvement with function and return to prior level function Goal Time Frame: 4-6 Weeks Rehabilitation Potential Physical Therapy Diagnosis: This patient had CVA with current deficits with level balance activities and decrease endurance with decrease function strength and balance testing thus benefit from skilled PT Rehabilitation Potential: Good Anticipated Interventions Patient/Client Instruction: Educate patient on: Condition and Plan of Care For the Purpose of:: To improve muscle performance and motor function, To improve ability to perform ADL's, To increase tolerance to activity/condition/position, To improve ability of physical actions for home/community/work/leisure, To improve gait and locomotor functions, To increase flexibility/ROM, To improve endurance, To improve balance and To improve tolerance to ADL's Therapeutic Exercise to Include: Strength training, Endurance training and Balance training Comment: BLE STRENGTHENING For the Purpose of:: To improve muscle performance and motor function, To improve ability to perform ADL's, To increase tolerance to activity/condition/position, To improve ability of physical actions for home/community/work/leisure, To improve endurance and To improve balance Text: Thank you for the opportunity to evaluate your patient. For Medicare and Medicare HMO plans, please review the plan of care and approve it. It will need to be FAXED BACK to us at [phone] for Medicare purposes. For Medicare only, by signing this I certify the plan of care. Please let me know if there are questions or concerns regarding this plan of care. Physician Signature: Date:
--- NOTE | 2023-04-10 16:16 | HP.SP.EVAL ---
Visit History Visit Info Date of Eval: 04/09/23 Visit: 1 Bag Sealer: JANE History Attending Doctor: Referring Doctor: Reason for Referral: STROKE. RX HERE Medical Diagnosis: Aphasia/Cognitive Deficits Date of Onset of Diagnosis: 04/04/23 Previous speech therapy: No Other Relevant Medical History/Diagnoses/Surgery: Acute/subacute small infarct in left daisha consistent with acute ischemic infarct: Patient was in [facility] for one day. Patient stated he has Ostomy bag due to previous colon cancer. Tumor removed ear at age 23. Medications related to this diagnosis: aspirin 81 mg chewable tablet 81 mg PO BREAKFAST 30 days #30 tabs 04/06/23 atorvastatin 80 mg tablet 80 mg PO QHS 30 days #30 tabs 04/06/23 losartan 50 mg tablet 50 mg PO DAILY 1 month #30 tabs 04/06/23 Smoking Status: Never smoker Diagnosis Diagnosis: Mild expressive aphasia and mild cognitive deficits Pain Is pain an issue with your current prescribed condition?: No Personal Preferred language: Cook Islander Patient Allergies Allergies Allergies: Allergies latex Allergy (Verified 09/01/22 17:06) Rash Subjective Dysphagia Current Diet Solids Current Diet: Regular Current Diet Liquids Current Liquids: Thin Comments Comment: -: Patient reported no difficulty, however, reported that he has coughed multiple times when drinking. CLQT CLQT CLQT Administered: Yes CLQT: Cognitive Linguistic Quick Test (CLQT) is a criterion - referenced assessment designed for adults between the ages of 18 and 89 with known or suspected neurological dysfuntions. The CLQT is to assess strength and weaknesses in five cognitive domains. Severity ratings are within normal limits, mild, moderate, severe deficits. The subtests are as follows: Date: 04/09/23 Executive Functions Executive Functions: WNL CLQT Comments CLQT: -: The executive functioning portion of the CLQT was given to the patient. Patient had difficulty with following directions during the maze portion and only using three instead of four lines multiple times during design generation subtest. The rest of the CLQT will be administered during following sessions. His cut criterion score for his age for mazes was note met and design generation. N-AMIRA [place] Dysarthria Assessment Tool Intelligibility:: Intelligible Respiration:: Abdominal Phonation: Phonation: Adequate Pitch: Adequate Quality: Adequate Resonance: Resonance: Nasality: Adequate Prosody: Prosody: Ability to vary: Reduced Articulation: Rate of speech: Adequate Phrase length: Adequate Additional Information: Comment: reported that he is mildly monotone compared to prior to CVA. Reference: Neuro-QoL instrument HDQLIFE - Speech Difficulties In the past 7 days. It was difficult for other people to understand me.: Never Is was difficult to speak clearly?: Rarely In the past 7 days.. How often did you limit your social activites because you had difficulty speaking?: Never In the past 7 days... I had trouble speaking.: A little bit I was frustrated by my speech difficulties.: Somewhat How much DIFFICULTY do you have... ...saying what you want to say?: Some difficulty Score HDQLIFE Speech Difficulties Raw Score: 12 HDQLIFE Speech Difficulties T - Score: 52 Radiation Oncology Patient Other Other Comment: -: The patient exhibited anomia during the evaluation. It was significant enough to stop the conversation until he was able to think of it. He reported that it happens at home intermittently. Plan Plan Plan: Speech therapy is warranted for higher-level cognitive functioning skills including deductive reasoning, judgement and reasoning. Recommendations Treatment Warranted: Yes Treatment Warranted: Receptive/ Expressive Language and Cognition Progress Prognosis: Excellent Frequency Frequency: 1x/Week Duration: 2 Months Visits in this POC: 8 Patient/Family Goal Patient/Family Goal: Patient wishes to be back to previous level of function. Goals that are Established Determination:: Goals will be added/modified as deemed necessary and appropriate. Therapy will be discontinued when results of re-evaluation indicate therapy is no longer needed or lack of progress has been documented. Goal #1-5 Goal #1: Gilberto will complete word finding tasks with no more than 5 errors in a 60 minute session. Goal #2: Gilberto will complete higher level excutive function tasks including deduction, reasoning, and judgement with 90% accuracy on 2/3 consecutive session with minimal cues. Goal #3: Completion of cognitive testing. Goal #4: Dysphagia evaluation with goals added as necessary. Education Patient has Indicated that the Following Identified Educational Needs: None The Patient has indicated that they have no educational or learning abilities that may effect their care.: Yes Patient Instruction Patient Education: Diagnosis and Treatment Plan Person Taught: Patient and Family Teaching Method: Discussion Response to teaching: Verbalize understanding
--- NOTE | 2023-05-07 11:30 | HP.OTDCSUM ---
Discharge Summary D/C Summary: It has been my pleasure to treat JAY AUSTIN under orders from Dr. Kannan Foster MD, for the diagnosis of CVA for a total of 8 visit(s). Please see the following information for a summary of their discharge status. 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 with ADLS and IADLs not met pt will demo a increase in right assistant professor of sociology strength by 20# to increase pts ind. with ADLs and IADLs by d/c. not met pt will demo a increase in right pinch strength by 4# to increase pts ind. with ADLS and IADLs by d/c not met Goal:: pt will demo a increase in right FMS noted by writing legibly in cursive by d/c goal met pt will demo a reduction in 9-hole peg testing by 7 sec. demo increase in FMS speed/dext. by d.c goal not met Goal:: pt and family will report no spillage with eating with fork/spoon in 3 weeks to increase pts ind. with self feeding. goal met pt will report increase speed with shaving by d/c to return pt to his PLOF. goal met Plan Plan: discharge from OT services D/C Information Discharge Comments: Pt with progress made in functional use of R UE. pt reports 100% improvement in the use of his RUE. significant improvement seen in pt quick dash score. Pt assistant professor of sociology and pinch strength assessment this date may be skewed by level of hard manual work gardening pt had compelted the day prior. pt does still have a slight decrease in coordination of R hand however day to day task provided for pt to complete at home for ongoing improvement. d/c sentence: If there are questions or concerns regarding this patient's occupational therapy, please fell free to call me at [phone]. Thank you for the referral of this patient. Sincerely, Lisset Lezama
--- NOTE | 2023-05-09 10:59 | HP.PTDCSUM ---
Discharge Summary D/C summary: It has been my pleasure to treat JAY AUSTIN referred by Dr. Kannan Foster MD, with the diagnosis of ACUTE ISCHEMIC INFARCT LEFT BAILEY for a total of 9 visit(s). Discharge Date: 05/09/23 Please see the following information for a summary of their discharge status. Subjective Subjective: Doing good Overall Improvement % Improvement: 90 Objective Objective/Function: POSTURE: mild forward posture GAIT: reciprocal pattern STAIRS : alternating steps with rails MMT: quads/hams 4/5 ,hip flexion 4-/5 ,hip abd 4/5 ,ankle 4/5 FLEXABILITY: hamstrings mild tight Goals Goal 1:: Patient to be I with balance and endurance program Goal Progress: Goal Met Goal 2:: Patient to improve LFES score by 5 -10 points to improve QOL Goal Progress: Goal Met Goal 3:: Patient to CATSIBE by 5 points to improve balance. Goal Progress: Goal Met Goal 4:: Patient to improve functional gait assessment score by 10 points to improve balance Goal Progress: Goal Met Goal 5:: Patient to demonstrate 70% improvement with function and return to prior level function Plan Plan: D/C D/C Information d/c sentence: If there are questions or concerns regarding this patient's physical therapy, please feel free to call me at [phone]. Thank you for the referral of this patient. Sincerely, Adam Alejandra PT, Cert MDT, OCS Balance/Gait/Functional tests Balance/Special Test Scores Functional Gait Assessment Score: 30 % Disability: 0 CATSIB Score (Max score 120 seconds): 120 Lower Extremity Functional Score: 70 30 Second Chair Rise Test Seconds: 15 6 Minute Walk Test: 431.59 meters = 79% normative range Improvement % Improvement: 90
--- NOTE | 2023-06-10 17:34 | HP.SP.DC ---
ST Discharge Summary Discharged: Discharge: Gilberto Martinez is discharged from [facility] as of 04/09/23. He was evaluated on 03/27/23 for Aphasia/Cognitive Deficits following a CVA. He was seen for 5 visits and progressed very well. His goals focused on word finding, higher level executive function tasks including deduction, reasoning, and judgement, and dysphagia evaluation. At discharge he did not have any word finding errors in a 60-minute session. He was able to complete executive function tasks with 90% accuracy and his dysphagia evaluation demonstrated WNL skills. Regular foods and thin liquids recommended. Patient agreed with discharge as he reported he no longer had deficits. Thank you for allowing me to participate in the care of this patient.
== END 2023-05-14 10:56 | disposition home or self-care (01) ==
LOC: SP 10:00
PROVIDERS: PCP Registered Nurse; Referring Provider Internal Medicine; Visit Provider Internal Medicine
DX: Z86.73 Personal history of transient ischemic attack (TIA), and cerebral infarction without residual deficits (principal); R47.81 Slurred speech; R47.01 Aphasia
CPT/HCPCS: 92507; 92523; 92610; 97110; 97129; 97130; 97162; 97166; 97530